=== PATIENT | female | born 1975 | race Caucasian/White ===

== ENCOUNTER 2017-05-10 21:34 | Emergency (ER) | payer OTHER ==
--- NOTE | 2017-05-10 21:56 | ERPHSYRPT ---
- History of Present Illness Time Seen by Provider: 05/10/17 21:51 Historian: patient Exam Limitations: no limitations Physician History: The patient is a 41-year-old female complaining of vomiting that began at approximately 1 PM or 8 hours ago. She has vomited numerous times. This caused pain in her abdomen as well as her back. She tried one Zofran ODT but she quickly vomited after taking it. She had one episode of loose stool just before arrival. She is not lightheaded. She has a past medical history of colitis that she states happens about twice a year. She also has past medical history of kidney stones, fibromyalgia, hypertension, depression, and GERD. Timing/Duration: today, hour(s) (8) Activities at Onset: none Quality: aching Abdominal Pain Onset Location: generalized abdomen Pain Radiation: back Severity of Pain-Max: moderate Severity of Pain-Current: moderate Modifying Factors: Improves With: vomiting Associated Symptoms: diarrhea, nausea, vomiting Previous symptoms: same symptoms as today Allergies/Adverse Reactions: meperidine HCl [From Demerol] Allergy (Unknown, Verified 09/04/15 23:07) aspirin Allergy (Verified 09/04/15 23:07) morphine Allergy (Verified 09/04/15 23:07) Home Medications: Duloxetine HCl [Cymbalta] 60 mg PO DAILY 08/08/15 [History] Enalapril Maleate 10 mg [Vasotec 10 MG] 10 mg PO BID 08/08/15 [History] Omeprazole 20 MG [Prilosec 20 mg] 20 mg PO BID 08/08/15 [History] Tramadol HCl 50 mg [Ultram 50 mg] 50 mg PO Q6H PRN 08/08/15 [History] Hx Tetanus, Diphtheria Vaccination/Date Given: Yes Hx Influenza Vaccination/Date Given: Yes Hx Pneumococcal Vaccination/Date Given: No - Review of Systems Constitutional: No Fever, No Chills Eyes: No Symptoms Ears, Nose, & Throat: No Symptoms Respiratory: No Cough, No Dyspnea Cardiac: No Chest Pain, No Edema, No Syncope Abdominal/Gastrointestinal: Abdominal Pain, Nausea, Vomiting, Diarrhea Genitourinary Symptoms: No Dysuria Musculoskeletal: No Back Pain, No Neck Pain Skin: No Rash Neurological: No Dizziness, No Focal Weakness, No Sensory Changes Psychological: No Symptoms Endocrine: No Symptoms Hematologic/Lymphatic: No Symptoms Immunological/Allergic: No Symptoms All Other Systems: Reviewed and Negative - Past Medical History Pertinent Past Medical History: Yes Neurological History: No Pertinent History ENT History: No Pertinent History Cardiac History: Hypertension Respiratory History: No Pertinent History Endocrine Medical History: No Pertinent History Musculoskeletal History: Fibromyalgia GI Medical History: Colitis, GERD History: Other Psycho-Social History: No Pertinent History Female Reproductive Disorders: No Pertinent History Other Medical History: SCIATICA - Past Surgical History Past Surgical History: Yes Neuro Surgical History: No Pertinent History Cardiac: No Pertinent History Respiratory: No Pertinent History Gastrointestinal: Cholecystectomy Genitourinary: No Pertinent History Musculoskeletal: No Pertinent History Female Surgical History: No Pertinent History Other Surgical History: childbirth x three, - Social History Smoking Status: Never smoker Exposure to second hand smoke: No Drug Use: none Patient Lives Alone: No Significant Family History: no pertinent family hx - Nursing Vital Signs Nursing Vital Signs: Initial Vital Signs Temperature 98.2 F 05/10/17 21:44 Pulse Rate 108 H 05/10/17 21:44 Respiratory Rate 16 05/10/17 21:44 Blood Pressure 156/96 05/10/17 21:44 O2 Sat by Pulse Oximetry 99 05/10/17 21:44 Pain Scale Pain Intensity 5 - Physical Exam General Appearance: mild distress Eye Exam: PERRL/EOMI, eyes nml inspection Ears, Nose, Throat Exam: normal ENT inspection, pharynx normal, moist mucous membranes Neck Exam: normal inspection, non-tender, supple, full range of motion Respiratory Exam: normal breath sounds, lungs clear, No respiratory distress Cardiovascular Exam: tachycardia Gastrointestinal/Abdomen Exam: tenderness (generalized), No guarding Pelvic Exam: not done Rectal Exam: not done Back Exam: normal inspection, normal range of motion, No CVA tenderness, No vertebral tenderness Extremity Exam: normal inspection, normal range of motion, pelvis stable Neurologic Exam: alert, oriented x 3, cooperative, normal mood/affect, nml cerebellar function, sensation nml, No motor deficits Skin Exam: normal color, warm, dry SpO2 Interpretation: normal - Radiology Exams Chest X-ray Interpretation: Interpreted by me, Negative Abdomen X-ray Interpretation: Negative (No obstruction, minimal air/fluid levels in small bowel.) Ordered Tests: Active Orders 24 hr Category Date Time Status Clean Catch Urine Specimen STAT Care 05/10/17 22:39 Active Clean Catch Urine Specimen STAT Care 05/10/17 23:07 Active IV Insertion STAT Care 05/10/17 21:57 Active OBSTR/ACUTE ABDOMEN SERIES Stat Exams 05/10/17 21:57 Taken CBC W DIFF Stat Lab 05/10/17 22:19 Completed CMP Stat Lab 05/10/17 22:19 Completed CULTURE,URINE Stat Lab 05/10/17 23:07 Received Lactic Acid Stat Lab 05/10/17 22:15 Completed UA W/ MICROSCOPIC Stat Lab 05/10/17 23:07 Completed Medication Summary Discontinued Medications Generic Name Dose Route Start Last Admin Trade Name Hanselq PRN Reason Stop Dose Admin Famotidine 20 mg 05/10/17 21:57 05/10/17 22:15 Pepcid 20 Mg Vial IV 05/10/17 21:58 20 mg STAT ONE Administration Famotidine Confirm 05/10/17 22:07 Pepcid 20 Mg Vial Administered 05/10/17 22:08 Dose 20 mg IV .STK-MED ONE Sodium Chloride 1,000 mls @ 999 mls/hr 05/10/17 21:57 05/10/17 22:24 Sodium Chloride 0.9% 1000 Ml IV 05/10/17 22:57 999 mls/hr .Q1H1M STA Administration Sodium Chloride Confirm 05/10/17 22:23 Sodium Chloride 0.9% 1000 Ml Administered 05/10/17 22:24 Dose 1,000 mls @ ud .ROUTE .STK-MED ONE Promethazine HCl 12.5 mg 05/10/17 21:57 05/10/17 22:15 Phenergan 25 Mg Inj IV 05/10/17 21:58 12.5 mg STAT ONE Administration Promethazine HCl Confirm 05/10/17 22:06 Phenergan 25 Mg Inj Administered 05/10/17 22:07 Dose 25 mg .ROUTE .STK-MED ONE Promethazine HCl 12.5 mg 05/10/17 22:42 05/10/17 23:00 Phenergan 25 Mg Inj IV 05/10/17 22:43 12.5 mg STAT ONE Administration Promethazine HCl Confirm 05/10/17 22:45 Phenergan 25 Mg Inj Administered 05/10/17 22:46 Dose 25 mg .ROUTE .STK-MED ONE Lab/Rad Data: Laboratory Result Diagrams 05/10/17 22:19 05/10/17 22:19 Laboratory Results 05/10/17 05/10/17 05/10/17 Range/Units 23:07 22:19 22:19 WBC 9.0 (4.0-10.5) K/mm3 RBC 5.34 (4.1-5.4) M/mm3 Hgb 13.7 (12.0-16.0) gm/dl Hct 41.9 (35-47) % MCV 78.5 (78-100) fl MCH 25.7 L (26-32) pg MCHC 32.7 (32-36) g/dl RDW 15.8 H (11.5-14.0) % Plt Count 233 (150-450) K/mm3 MPV 9.6 H (6-9.5) fl Gran % 87.8 H (36.0-66.0) % Eos # (Auto) 0.07 (0-0.5) Absolute Lymphs (auto) 0.66 L (1.0-4.6) Absolute Monos (auto) 0.35 (0.0-1.3) Lymphocytes % 7.3 L (24.0-44.0) % Monocytes % 3.9 (0.0-12.0) % Eosinophils % 0.8 (0.00-5.0) % Basophils % 0.2 (0.0-0.4) % Absolute Granulocytes 7.88 H (1.4-6.9) Basophils # 0.02 (0-0.4) Sodium 140 (137-145) mmol/L Potassium 3.8 (3.5-5.1) mmol/L Chloride 104 (98-107) mmol/L Carbon Dioxide 26 (22-30) mmol/L Anion Gap 14.5 (5-15) MEQ/L BUN 18 H (7-17) mg/dL Creatinine 0.59 (0.52-1.04) mg/dL Estimated GFR > 60 ML/MIN Glucose 116 H (74-106) mg/dL Lactic Acid (0.4-2.0) Calcium 8.9 (8.4-10.2) mg/dL Total Bilirubin 0.40 (0.2-1.3) mg/dL AST 17 (14-36) U/L ALT 14 (0-35) U/L Alkaline Phosphatase 61 (38-126) U/L Serum Total Protein 7.0 (6.3-8.2) g/dL Albumin 3.9 (3.5-5.0) g/dL Ur Collection Type CLEAN CATCH Urine Color YELLOW (YELLOW) Urine Appearance CLEAR (CLEAR) Urine pH 5.0 (5-6) Ur Specific [place] 1.015 (1.005-1.025) Urine Protein NEGATIVE (Negative) Urine Ketones NEGATIVE (NEGATIVE) Urine Blood 50 (0-5) Todd/ul Urine Nitrite NEGATIVE (NEGATIVE) Urine Bilirubin NEGATIVE (NEGATIVE) Urine Urobilinogen NORMAL (0-1) mg/dL Ur Leukocyte Esterase TRACE (NEGATIVE) Urine Microscopic RBC 5-10 (0-2) /HPF Urine Microscopic WBC 2-5 (0-5) /HPF Ur Epithelial Cells FEW (FEW) /HPF Urine Bacteria FEW (NEGATIVE) /HPF Urine Culture Reflexed YES (NO) Urine Glucose NEGATIVE (NEGATIVE) mg/dL Specimen Received [id number] 05/10/17 Range/Units 22:15 WBC (4.0-10.5) K/mm3 RBC (4.1-5.4) M/mm3 Hgb (12.0-16.0) gm/dl Hct (35-47) % MCV (78-100) fl MCH (26-32) pg MCHC (32-36) g/dl RDW (11.5-14.0) % Plt Count (150-450) K/mm3 MPV (6-9.5) fl Gran % (36.0-66.0) % Eos # (Auto) (0-0.5) Absolute Lymphs (auto) (1.0-4.6) Absolute Monos (auto) (0.0-1.3) Lymphocytes % (24.0-44.0) % Monocytes % (0.0-12.0) % Eosinophils % (0.00-5.0) % Basophils % (0.0-0.4) % Absolute Granulocytes (1.4-6.9) Basophils # (0-0.4) Sodium (137-145) mmol/L Potassium (3.5-5.1) mmol/L Chloride (98-107) mmol/L Carbon Dioxide (22-30) mmol/L Anion Gap (5-15) MEQ/L BUN (7-17) mg/dL Creatinine (0.52-1.04) mg/dL Estimated GFR ML/MIN Glucose (74-106) mg/dL Lactic Acid 1.7 (0.4-2.0) Calcium (8.4-10.2) mg/dL Total Bilirubin (0.2-1.3) mg/dL AST (14-36) U/L ALT (0-35) U/L Alkaline Phosphatase (38-126) U/L Serum Total Protein (6.3-8.2) g/dL Albumin (3.5-5.0) g/dL Ur Collection Type Urine Color (YELLOW) Urine Appearance (CLEAR) Urine pH (5-6) Ur Specific [place] (1.005-1.025) Urine Protein (Negative) Urine Ketones (NEGATIVE) Urine Blood (0-5) Todd/ul Urine Nitrite (NEGATIVE) Urine Bilirubin (NEGATIVE) Urine Urobilinogen (0-1) mg/dL Ur Leukocyte Esterase (NEGATIVE) Urine Microscopic RBC (0-2) /HPF Urine Microscopic WBC (0-5) /HPF Ur Epithelial Cells (FEW) /HPF Urine Bacteria (NEGATIVE) /HPF Urine Culture Reflexed (NO) Urine Glucose (NEGATIVE) mg/dL Specimen Received - Progress Progress: improved Counseled pt/family regarding: lab results, diagnosis, need for follow-up, rad results - Departure Time of Disposition: 01:03 Departure Disposition: Home Clinical Impression: Gastroenteritis Condition: Stable Critical Care Time: No Referrals: OC HERRERA MD [Primary Care Provider] - Additional Instructions: You have gastroenteritis. You were given Phenergan 12-1/2 mg 2 times and fluids by IV in the ER. Take Zofran 4 mg every 6 hours as needed for nausea and vomiting. Stay well hydrated. Follow-up in one to 2 days if no improvement. Prescriptions: Ondansetron ODT 4 MG [Zofran Odt 4 mg] 1 tab PO Q6H PRN PRN #10 tab.rapdis PRN Reason: Nausea/Vomiting
[2017-05-10] MEDS ORDERED: Sodium Chloride 0.9% 1000 ML 1,000 ML IV STA (21:57)
[2017-05-10] MEDS ORDERED: Pepcid 20 MG VIAL IV ONE ×2 (21:57→22:07)
[2017-05-10] MEDS ORDERED: Phenergan 25 MG INJ IV ONE ×2 (21:57→22:42)
[2017-05-10] MEDS ORDERED: Phenergan 25 MG INJ ONE ×2 (22:06→22:45)
[2017-05-10 22:23] LABS: BASOPHIL % 0.2 % (0.0-0.4); Basophil (Absolute #) 0.02 (0-0.4); Eosinophil % 0.8 % (0.00-5.0); Eosinophil (Absolute #) 0.07 (0-0.5); Granulocyte Absolute (ANC) 7.88 (1.4-6.9); Granulocytes % 87.8 % (36.0-66.0); Hematocrit 41.9 % (35-47); Hemoglobin 13.7 gm/dl (12.0-16.0); Lymphocyte (Absolute #) 0.66 (1.0-4.6); Lymphocytes % 7.3 % (24.0-44.0); Mean Cell Volume 78.5 fl (78-100); Mean Corpuscular Hemoglobin 25.7 pg (26-32); Mean Corpuscular Hgb Concent. 32.7 g/dl (32-36); Mean Platelet Volume 9.6 fl (6-9.5); Monocyte (Absolute #) 0.35 (0.0-1.3); Monocytes % 3.9 % (0.0-12.0); Platelet Count 233 K/mm3 (150-450); Red Blood Count 5.34 M/mm3 (4.1-5.4); Red Cell Distribution Width 15.8 % (11.5-14.0)
[2017-05-10] MEDS ORDERED: Sodium Chloride 0.9% 1000 ML 1,000 ML ONE (22:23)
[2017-05-10 22:38] LABS: ALBUMIN 3.9 g/dL (3.5-5.0); ALKALINE PHOSPHATASE 61 U/L (38-126); ANION GAP 14.5 MEQ/L (5-15); BLOOD UREA NITROGEN 18 mg/dL (7-17); CHLORIDE 104 mmol/L (98-107); Calcium 8.9 mg/dL (8.4-10.2); Carbon Dioxide 26 mmol/L (22-30); Creatinine 1 0.59 mg/dL (0.52-1.04); Glucose 116 mg/dL (74-106); Potassium 3.8 mmol/L (3.5-5.1); SGOT/AST 17 U/L (14-36); SGPT/ALT 14 U/L (0-35); SODIUM 140 mmol/L (137-145)
[2017-05-10 23:40] VITALS: O2SAT 100
[2017-05-10 23:50] LABS: Appearance CLEAR (CLEAR); Bilirubin NEGATIVE (NEGATIVE); Blood 50 Ery/ul (0-5); Glucose NEGATIVE (NEGATIVE); Ketones NEGATIVE (NEGATIVE); Leukocyte Esterase TRACE (NEGATIVE); Nitrite NEGATIVE (NEGATIVE); Protein,Urine Dip NEGATIVE (Negative); Specific Gravity 1.015 (1.005-1.025); Urobilinogen NORMAL mg/dL (0-1)
[2017-05-10 23:51] LABS: Bacteria FEW /HPF (NEGATIVE); Epithelial Cells FEW /HPF (FEW)
[2017-05-11 00:50] VITALS: BP 134/80; PULSE 89
--- NOTE | 2017-05-11 09:13 | XRAY ---
Indication: Abdominal pain, nausea, and vomiting. Comparison: Chest exam May 26, 2014. 2 views of the abdomen demonstrates nonspecific nonobstructed bowel gas pattern. Minimal small and large bowel fluid leveling, ileus or enterocolitis. No focal bowel dilatation, obstruction, or free air. Previous cholecystectomy. Solid organs and osseous structures unremarkable. Single frontal chest again demonstrates normal heart and lungs with a few incidental calcified granulomas. Bony thorax intact again with minimal degenerative changes. Impression: 1. Minimal small and large bowel fluid leveling. Rule out ileus versus enterocolitis. 2. Stable nonacute 1 view chest with chronic features.
== END 2017-05-11 01:11 | disposition home or self-care (01) ==
LOC: ED 21:34
DX: K52.9 Noninfective gastroenteritis and colitis, unspecified (principal); R11.2 Nausea with vomiting, unspecified; Z79.899 Other long term (current) drug therapy
CPT/HCPCS: 36000; 36415; 74022; 80053; 81000; 83605; 85025; 87086; 96360; 99284; J2550

== ENCOUNTER 2017-07-27 02:05 | Inpatient (IN) | payer OTHER ==
[2017-07-27] MEDS ORDERED: Hydromorphone 1 mg/ml Ampule IV ONE ×2 (02:38→04:46)
[2017-07-27] MEDS ORDERED: Zofran 4 MG/2 ML VIAL IV ONE ×2 (02:38→04:47)
[2017-07-27] MEDS ORDERED: TYLENOL 325 MG PO ONE (02:38)
[2017-07-27] MEDS ORDERED: Sodium Chloride 0.9% 1000 ML 1,000 ML IV STA ×2 (02:38→08:40)
--- NOTE | 2017-07-27 02:38 | ERPHSYRPT ---
- History of Present Illness Time Seen by Provider: 07/27/17 02:27 Source: patient Exam Limitations: no limitations Patient Subjective Stated Complaint: Pt arrives to ER with c/o generalized body aches that began 1400 while laying in bed. States pain is all over and not more in any one spot than another other than headache. Pt states couple be Fibromyalgia flare up and rates pain 12/10. Does not appear to be in any acute distress at this time. States has a known kidney stone on left side but denies any specific problems from stone. Pt denies hematuria, dysuria, vaginal discharge. 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 States has also been stressed lately. Triage Nursing Assessment: see above Physician History: 42 y/o female with history of colitis, kidneys tone and fibromyalgia comes to the ER with complaints of diffue body aches with the pain worse in the lower abdomen since yesterday afternoon. Pt describes the pain as aching, constant, 8/ 10, and not relieved by tramadol and hot baths. Pt also admits to nausea, but no vomiting, diarrhea, constipation, or bloody stools. Pt arrives with a fever of 100.8 and tachycardic in the 110's. Timing/Duration: yesterday Severity: severe Modifying Factors: Improves With: nothing Associated Symptoms: nausea, No shortness of breath, No diaphoresis, No cough, No loss of appetite Allergies/Adverse Reactions: meperidine HCl [From Demerol] Allergy (Unknown, Verified 07/27/17 02:22) aspirin Allergy (Verified 07/27/17 02:22) morphine Allergy (Verified 07/27/17 02:22) Home Medications: Duloxetine HCl [Cymbalta] 60 mg PO DAILY 08/08/15 [History] Enalapril Maleate 10 mg [Vasotec 10 MG] 10 mg PO BID 08/08/15 [History] Omeprazole 20 MG [Prilosec 20 mg] 20 mg PO BID 08/08/15 [History] Tramadol HCl 50 mg [Ultram 50 mg] 50 mg PO Q6H PRN 08/08/15 [History] Alprazolam [Xanax] 0.5 mg PO 07/27/17 [History] Hx Tetanus, Diphtheria Vaccination/Date Given: Yes Hx Influenza Vaccination/Date Given: Yes Hx Pneumococcal Vaccination/Date Given: No - Review of Systems Constitutional: Weakness, No Fever, No Chills Eyes: No Symptoms Ears, Nose, & Throat: No Symptoms Respiratory: No Cough, No Dyspnea Cardiac: No Chest Pain, No Edema, No Syncope Abdominal/Gastrointestinal: Abdominal Pain, Nausea, No Vomiting, No Diarrhea Genitourinary Symptoms: No Dysuria Musculoskeletal: Myalgias, No Back Pain, No Neck Pain Skin: No Rash Neurological: No Dizziness, No Focal Weakness, No Sensory Changes Psychological: No Symptoms Endocrine: No Symptoms All Other Systems: Reviewed and Negative - Past Medical History Pertinent Past Medical History: Yes Neurological History: No Pertinent History ENT History: No Pertinent History Cardiac History: Hypertension Respiratory History: No Pertinent History Endocrine Medical History: No Pertinent History Musculoskeletal History: Fibromyalgia GI Medical History: Colitis, GERD History: Other Psycho-Social History: No Pertinent History Female Reproductive Disorders: No Pertinent History Other Medical History: SCIATICA, kidney stones - Past Surgical History Past Surgical History: Yes Neuro Surgical History: No Pertinent History Cardiac: Cardiac Catheterization Respiratory: No Pertinent History Gastrointestinal: Cholecystectomy Genitourinary: No Pertinent History Musculoskeletal: No Pertinent History Female Surgical History: No Pertinent History Other Surgical History: childbirth x three, - Social History Smoking Status: Never smoker Exposure to second hand smoke: No Drug Use: none Patient Lives Alone: No Significant Family History: no pertinent family hx - Female History Hx Now: No - Nursing Vital Signs Nursing Vital Signs: Initial Vital Signs Temperature 100.8 F 07/27/17 02:13 Pulse Rate 117 H 07/27/17 02:13 Respiratory Rate 18 07/27/17 02:13 Blood Pressure 161/91 07/27/17 02:13 O2 Sat by Pulse Oximetry 100 07/27/17 02:13 Pain Scale Pain Intensity [Generalized] 10 Pain Intensity 5 - Physical Exam General Appearance: no apparent distress, alert Eye Exam: PERRL/EOMI, eyes nml inspection Ears, Nose, Throat Exam: normal ENT inspection, TMs normal, pharynx normal, moist mucous membranes Neck Exam: normal inspection, non-tender, supple, full range of motion Respiratory Exam: normal breath sounds, lungs clear, No respiratory distress Cardiovascular Exam: regular rate/rhythm, normal heart sounds, normal peripheral pulses, tachycardia Gastrointestinal/Abdomen Exam: soft, normal bowel sounds, tenderness, No mass Back Exam: normal inspection, normal range of motion, No CVA tenderness, No vertebral tenderness Extremity Exam: normal inspection, normal range of motion, pelvis stable Neurologic Exam: alert, oriented x 3, cooperative, normal mood/affect, nml cerebellar function, nml station & gait, sensation nml, No motor deficits Skin Exam: normal color, warm, dry, No rash Lymphatic Exam: No adenopathy SpO2: 100 Oxygen Delivery: Room Air - Course Nursing assessment & vital signs reviewed: Yes Ordered Tests: Active Orders 24 hr Category Date Time Status IV Insertion STAT Care 07/27/17 02:38 Active ABDOMEN AND PELVIS W CONTRAST [CT] Stat Exams 07/27/17 02:38 Taken CHEST 2 VIEWS (PA AND LAT) Stat Exams 07/27/17 02:38 Taken AMYLASE Stat Lab 07/27/17 02:25 Completed BLOOD CULTURE Stat Lab 07/27/17 03:10 Received CBC W DIFF Stat Lab 07/27/17 02:25 Completed CMP Stat Lab 07/27/17 02:25 Completed HCG QUALITATIVE,SERUM Stat Lab 07/27/17 02:25 Completed LIPASE Stat Lab 07/27/17 02:25 Completed Lactic Acid Stat Lab 07/27/17 03:15 Completed UA W/ MICROSCOPIC Stat Lab 07/27/17 02:25 Completed Medication Summary Generic Name Dose Route Start Last Admin Trade Name Freq PRN Reason Stop Dose Admin Levofloxacin/Dextrose 750 mg in 150 mls @ 100 mls/hr 07/27/17 06:02 Levofloxacin 750mg/150ml D5w IV 07/27/17 07:31 STAT ONE Metronidazole 500 mg in 100 mls @ 200 mls/hr 07/27/17 06:04 Flagyl 500 Mg Ivpb IV 07/27/17 06:33 STAT STA Discontinued Medications Generic Name Dose Route Start Last Admin Trade Name Freq PRN Reason Stop Dose Admin Acetaminophen 975 mg 07/27/17 02:38 07/27/17 02:54 Tylenol 325 Mg PO 07/27/17 02:39 975 mg STAT ONE Administration Acetaminophen Confirm 07/27/17 02:44 Tylenol 325 Mg Administered 07/27/17 02:45 Dose 975 mg .ROUTE .STK-MED ONE Hydromorphone HCl 1 mg 07/27/17 02:38 07/27/17 02:53 Hydromorphone 1 Mg/Ml Ampule IV 07/27/17 02:39 1 mg STAT ONE Administration Hydromorphone HCl Confirm 07/27/17 02:44 Dilaudid 2 Mg Injection Administered 07/27/17 02:45 Dose 2 mg .ROUTE .STK-MED ONE Hydromorphone HCl 1 mg 07/27/17 04:46 07/27/17 04:50 Hydromorphone 1 Mg/Ml Ampule IV 07/27/17 04:47 1 mg STAT ONE Administration Hydromorphone HCl Confirm 07/27/17 04:48 Dilaudid 2 Mg Injection Administered 07/27/17 04:49 Dose 2 mg .ROUTE .STK-MED ONE Sodium Chloride 1,000 mls @ 999 mls/hr 07/27/17 02:38 07/27/17 03:56 Sodium Chloride 0.9% 1000 Ml IV 07/27/17 03:38 Infused .Q1H1M STA Infusion Sodium Chloride Confirm 07/27/17 02:44 Sodium Chloride 0.9% 1000 Ml Administered 07/27/17 02:45 Dose 1,000 mls @ ud .ROUTE .STK-MED ONE Ondansetron HCl 4 mg 07/27/17 02:38 07/27/17 02:54 Zofran 4 Mg/2 Ml Vial IV 07/27/17 02:39 4 mg STAT ONE Administration Ondansetron HCl Confirm 07/27/17 02:43 Zofran 4 Mg/2 Ml Vial Administered 07/27/17 02:44 Dose 4 mg .ROUTE .STK-MED ONE Ondansetron HCl 4 mg 07/27/17 04:47 07/27/17 04:50 Zofran 4 Mg/2 Ml Vial IV 07/27/17 04:48 4 mg STAT ONE Administration Ondansetron HCl Confirm 07/27/17 04:48 Zofran 4 Mg/2 Ml Vial Administered 07/27/17 04:49 Dose 4 mg .ROUTE .STK-MED ONE Lab/Rad Data: Laboratory Result Diagrams 07/27/17 02:25 07/27/17 02:25 Laboratory Results 07/27/17 07/27/17 07/27/17 Range/Units 03:15 02:25 02:25 WBC (4.0-10.5) K/mm3 RBC (4.1-5.4) M/mm3 Hgb (12.0-16.0) gm/dl Hct (35-47) % MCV (78-100) fl MCH (26-32) pg MCHC (32-36) g/dl RDW (11.5-14.0) % Plt Count (150-450) K/mm3 MPV (6-9.5) fl Gran % (36.0-66.0) % Eos # (Auto) (0-0.5) Absolute Lymphs (auto) (1.0-4.6) Absolute Monos (auto) (0.0-1.3) Lymphocytes % (24.0-44.0) % Monocytes % (0.0-12.0) % Eosinophils % (0.00-5.0) % Basophils % (0.0-0.4) % Absolute Granulocytes (1.4-6.9) Basophils # (0-0.4) Sodium (137-145) mmol/L Potassium (3.5-5.1) mmol/L Chloride (98-107) mmol/L Carbon Dioxide (22-30) mmol/L Anion Gap (5-15) MEQ/L BUN (7-17) mg/dL Creatinine (0.52-1.04) mg/dL Estimated GFR ML/MIN Glucose (74-106) mg/dL Lactic Acid 1.1 (0.4-2.0) Calcium (8.4-10.2) mg/dL Total Bilirubin (0.2-1.3) mg/dL AST (14-36) U/L ALT (0-35) U/L Alkaline Phosphatase (38-126) U/L Serum Total Protein (6.3-8.2) g/dL Albumin (3.5-5.0) g/dL Amylase (30-110) U/L Lipase (23-300) U/L Serum , Qual NEGATIVE (Negative) Ur Collection Type CCMS Urine Color YELLOW (YELLOW) Urine Appearance CLEAR (CLEAR) Urine pH 5.0 (5-6) Ur Specific [place] 1.015 (1.005-1.025) Urine Protein NEGATIVE (Negative) Urine Ketones NEGATIVE (NEGATIVE) Urine Blood NEGATIVE (0-5) Todd/ul Urine Nitrite NEGATIVE (NEGATIVE) Urine Bilirubin NEGATIVE (NEGATIVE) Urine Urobilinogen NORMAL (0-1) mg/dL Ur Leukocyte Esterase 1+ (NEGATIVE) Urine Microscopic WBC 0-2 (0-5) /HPF Ur Epithelial Cells MANY (FEW) /HPF Urine Culture Reflexed NO (NO) Urine Glucose NEGATIVE (NEGATIVE) mg/dL Specimen Received 07-27-17 [id number] 07/27/17 07/27/17 Range/Units 02:25 02:25 WBC 8.1 (4.0-10.5) K/mm3 RBC 5.13 (4.1-5.4) M/mm3 Hgb 13.4 (12.0-16.0) gm/dl Hct 40.0 (35-47) % MCV 78.0 (78-100) fl MCH 26.1 (26-32) pg MCHC 33.5 (32-36) g/dl RDW 16.9 H (11.5-14.0) % Plt Count 218 (150-450) K/mm3 MPV 9.8 H (6-9.5) fl Gran % 80.9 H (36.0-66.0) % Eos # (Auto) 0.03 (0-0.5) Absolute Lymphs (auto) 0.87 L (1.0-4.6) Absolute Monos (auto) 0.61 (0.0-1.3) Lymphocytes % 10.8 L (24.0-44.0) % Monocytes % 7.5 (0.0-12.0) % Eosinophils % 0.4 (0.00-5.0) % Basophils % 0.4 (0.0-0.4) % Absolute Granulocytes 6.55 (1.4-6.9) Basophils # 0.03 (0-0.4) Sodium 137 (137-145) mmol/L Potassium 3.6 (3.5-5.1) mmol/L Chloride 102 (98-107) mmol/L Carbon Dioxide 24 (22-30) mmol/L Anion Gap 13.7 (5-15) MEQ/L BUN 12 (7-17) mg/dL Creatinine 0.80 (0.52-1.04) mg/dL Estimated GFR > 60.0 ML/MIN Glucose 99 (74-106) mg/dL Lactic Acid (0.4-2.0) Calcium 9.0 (8.4-10.2) mg/dL Total Bilirubin 0.50 (0.2-1.3) mg/dL AST 12 L (14-36) U/L ALT 14 (0-35) U/L Alkaline Phosphatase 61 (38-126) U/L Serum Total Protein 7.3 (6.3-8.2) g/dL Albumin 4.0 (3.5-5.0) g/dL Amylase 50 (30-110) U/L Lipase 68 (23-300) U/L Serum , Qual (Negative) Ur Collection Type Urine Color (YELLOW) Urine Appearance (CLEAR) Urine pH (5-6) Ur Specific [place] (1.005-1.025) Urine Protein (Negative) Urine Ketones (NEGATIVE) Urine Blood (0-5) Todd/ul Urine Nitrite (NEGATIVE) Urine Bilirubin (NEGATIVE) Urine Urobilinogen (0-1) mg/dL Ur Leukocyte Esterase (NEGATIVE) Urine Microscopic WBC (0-5) /HPF Ur Epithelial Cells (FEW) /HPF Urine Culture Reflexed (NO) Urine Glucose (NEGATIVE) mg/dL Specimen Received - Progress Progress: improved Progress Note: 07/27/17 06:[address] scan abd/pelvis shows wall thickening of the cecum, ascending colon, proximal transverse colon with mild stranding around the cecum. There may be some involvement of the terminal ileum. Pt feels better after receiving 2 doses of dilaudid for pain and nausea/vomiting is also well controlled after receiving zofran. Pt has no white count and lactic acid is within normal limits but the patient presented with a fever and was tachycardic. Pt has been admitted to Dr Heath for colitis. - Departure Time of Disposition: 06:08 Departure Disposition: In-patient Admission Clinical Impression: Colitis Condition: Fair Critical Care Time: Yes Critical Care Time(excluding separately billable procedures): 30-74 minutes Referrals: OC HERRERA MD [Primary Care Provider] -
[2017-07-27] MEDS ORDERED: Zofran 4 MG/2 ML VIAL ONE ×2 (02:43→04:48)
[2017-07-27] MEDS ORDERED: DILAUDID 2 MG INJECTION ONE ×2 (02:44→04:48)
[2017-07-27] MEDS ORDERED: TYLENOL 325 MG ONE (02:44)
[2017-07-27] MEDS ORDERED: Sodium Chloride 0.9% 1000 ML 1,000 ML ONE (02:44)
[2017-07-27 02:47] LABS: BASOPHIL % 0.4 % (0.0-0.4); Basophil (Absolute #) 0.03 (0-0.4); Eosinophil % 0.4 % (0.00-5.0); Eosinophil (Absolute #) 0.03 (0-0.5); Granulocyte Absolute (ANC) 6.55 (1.4-6.9); Granulocytes % 80.9 % (36.0-66.0); Hemoglobin 13.4 gm/dl (12.0-16.0); Lymphocyte (Absolute #) 0.87 (1.0-4.6); Lymphocytes % 10.8 % (24.0-44.0); Mean Corpuscular Hemoglobin 26.1 pg (26-32); Mean Corpuscular Hgb Concent. 33.5 g/dl (32-36); Mean Platelet Volume 9.8 fl (6-9.5); Monocyte (Absolute #) 0.61 (0.0-1.3); Monocytes % 7.5 % (0.0-12.0); Platelet Count 218 K/mm3 (150-450); Red Blood Count 5.13 M/mm3 (4.1-5.4); Red Cell Distribution Width 16.9 % (11.5-14.0); White Blood Count 8.1 K/mm3 (4.0-10.5)
[2017-07-27 03:18] LABS: ALKALINE PHOSPHATASE 61 U/L (38-126); AMYLASE 50 U/L (30-110); ANION GAP 13.7 MEQ/L (5-15); BLOOD UREA NITROGEN 12 mg/dL (7-17); CHLORIDE 102 mmol/L (98-107); Carbon Dioxide 24 mmol/L (22-30); Glucose 99 mg/dL (74-106); LIPASE 68 U/L (23-300); Potassium 3.6 mmol/L (3.5-5.1); SGOT/AST 12 U/L (14-36); SGPT/ALT 14 U/L (0-35); SODIUM 137 mmol/L (137-145); Total Protein 7.3 g/dL (6.3-8.2)
[2017-07-27 03:39] LABS: Appearance CLEAR (CLEAR); Bilirubin NEGATIVE (NEGATIVE); Glucose NEGATIVE (NEGATIVE); Ketones NEGATIVE (NEGATIVE); Leukocyte Esterase 1+ (NEGATIVE); Nitrite NEGATIVE (NEGATIVE); Protein,Urine Dip NEGATIVE (Negative); Specific Gravity 1.015 (1.005-1.025); Urobilinogen NORMAL mg/dL (0-1)
[2017-07-27 03:40] LABS: Blood NEGATIVE Ery/ul (0-5); Epithelial Cells MANY /HPF (FEW); WBC 0-2 /HPF (0-5)
[2017-07-27] MEDS ORDERED: LEVOFLOXACIN 750MG/150ML D5W 750 MG/150 ML BAG IV ONE ×2 (06:02→06:04)
[2017-07-27] MEDS ORDERED: FLAGYL 500 MG IVPB 500 MG/100 ML BAG IV STA (06:04)
[2017-07-27] MEDS ORDERED: Phenergan 25 MG INJ IM PRN (06:08)
[2017-07-27] MEDS ORDERED: Sodium Chloride 0.9% 1000 ML 1,000 ML IV SCH ×2 (06:15)
--- NOTE | 2017-07-27 08:39 | PCM.HP ---
History of Present Illness - Chief Complaint Chief Complaint: colitis History of Present Illness: is a 42 year old female pt of Dr. Mai who woke up at 2 pm yesterday with body aches all over, nonlocalized. She did not note a fever. Came to the ER this morning and was found to be tacycardic and febrile to 100.8. CT showed colitis. She was put on levaquin and flagyl and admitted to med-surg unit. She started having watery diarrhea after the CT scan with dye. she denies any abd pain but was having nausea. She has a history of colitis several atimes in a year. Last colonoscopy several years ago. - Review of Systems Constitutional: Fever, Chills, Fatigue Abdominal/Gastrointestinal: Nausea, Diarrhea All Other Systems: Reviewed and Negative Medications & Allergies Home Medications: Home Medication List Duloxetine HCl [Cymbalta] 60 mg PO DAILY 08/08/15 [History Confirmed 07/27/17] Enalapril Maleate 10 mg [Vasotec 10 MG] 10 mg PO BID 08/08/15 [History Confirmed 07/27/17] Omeprazole 20 MG [Prilosec 20 mg] 20 mg PO BID 08/08/15 [History Confirmed 07/27] Tramadol HCl 50 mg [Ultram 50 mg] 50 mg PO Q6H PRN 08/08/15 [History Confirmed 07/27/17] Ondansetron ODT 4 MG [Zofran Odt 4 mg] 1 tab PO Q6H PRN PRN #10 tab.rapdis [Rx Confirmed 07/27/17] Alprazolam [Xanax] 0.5 mg PO Q6H PRN PRN 07/27/17 [History Confirmed 07/27/17] Nitroglycerin 0.4 mg Tablet [Nitrostat 0.4 MG Tablet] 0.4 mg SL Q5MIN PRN MR X 3 PRN 07/27/17 [History Confirmed 07/27/17] Allergies/Adverse Reactions: Allergies Allergy/AdvReac Type Severity Reaction Status Date / Time meperidine HCl [From Demerol] Allergy Unknown Verified 07/27/17 02:22 aspirin Allergy Verified 07/27/17 02:22 morphine Allergy Verified 07/27/17 02:22 - Past Medical History Past Medical History: Yes Neurological History: No Pertinent History, Migraines ENT History: No Pertinent History Cardiac History: Hypertension Respiratory History: No Pertinent History Endocrine Medical History: No Pertinent History Musculoskelatal History: Fibromyalgia GI Medical History: Colitis, GERD History: Other Pyscho-Social History: No Pertinent History Reproductive Disorders: No Pertinent History Comment: SCIATICA, kidney stones - Female History Are you now?: No - Past Surgical History Past Surgical History: Yes Neuro Surgical History: No Pertinent History Cardiac History: Cardiac Catheterization Respiratory Surgery: No Pertinent History GI Surgical History: Cholecystectomy Genitourinary Surgical Hx: No Pertinent History Musculskeletal Surgical Hx: No Pertinent History Female Surgical History: No Pertinent History Other Surgical History: childbirth x three, - Social History Smoking Status: Never smoker Exposure to second hand smoke: No Alcohol: Rarely Drug Use: none Significant Family History: no pertinent family hx - Physical Exam Vital Signs: Vital Signs - 24 hr Temp Pulse Resp BP Pulse Ox 07/27/17 07:00 98.2 F 110 H 20 139/80 100 07/27/17 06:50 98.2 F 110 H 20 139/80 100 07/27/17 06:37 98.2 F 110 H 20 139/80 100 07/27/17 06:12 99.6 F 106 H 18 128/88 100 07/27/17 06:08 100 07/27/17 04:00 18 107/74 99 07/27/17 03:30 127/76 99 07/27/17 02:13 100.8 F 117 H 18 161/91 100 General Appearance: no apparent distress, alert, obese Neurologic Exam: oriented x 3, normal mood/affect Eye Exam: eyes nml inspection Ears, Nose, Throat Exam: moist mucous membranes Neck Exam: normal inspection, non-tender, No lymphadenopathy Respiratory Exam: normal breath sounds, lungs clear, No crackles/rales, No rhonchi, No wheezing Cardiovascular Exam: regular rate/rhythm, normal heart sounds, No murmur Gastrointestinal/Abdomen Exam: soft, normal bowel sounds, No tenderness, No distention, No mass, No guarding, No rebound Extremity Exam: normal inspection, No pedal edema, No swelling Skin Exam: normal color, warm, dry, No rash Assessment/Plan (1) Colitis Current Visit: Yes Status: Acute Onset Date: ~07/27/17 Assessment & Plan: On IV levaquin and flagyl. Code(s): K52.9 - NONINFECTIVE GASTROENTERITIS AND COLITIS, UNSPECIFIED (2) Sinus tachycardia Current Visit: Yes Status: Acute Onset Date: ~07/27/17 Assessment & Plan: Will give her a bolus of IV fluids. Code(s): R00.0 - TACHYCARDIA, UNSPECIFIED (3) Essential hypertension Current Visit: No Status: Chronic Code(s): I10 - ESSENTIAL (PRIMARY) HYPERTENSION (4) Diarrhea Current Visit: Yes Status: Acute Qualifiers: Diarrhea type: unspecified type Qualified Code(s): R19.7 - Diarrhea, unspecified Assessment & Plan: check for c. diff. Code(s): R19.7 - DIARRHEA, UNSPECIFIED
[2017-07-27] MEDS: Phenergan 25 MG INJ IV PRN ×2 (08:56→21:40)
--- NOTE | 2017-07-27 09:01 | XRAY ---
Indication: Fever. Comparison: May 10, 2017. PA/lateral chest again demonstrates a few incidental calcified granulomas. Remaining heart and lungs normal. Bony thorax intact again with minimal degenerative changes. No new/acute findings.
--- NOTE | 2017-07-27 09:01 | XRAY ---
Indication: Lower abdominal pain. Nausea, diarrhea, and bloody stools. History colitis. Multiple contiguous axial images obtained through the abdomen and pelvis prior to and following 80 cc Isovue 370 contrast. Oral contrast also used. Comparison: August 08, 2015. Lung bases demonstrates minimal bilateral dependent atelectasis. No infiltrate or effusion. Heart is not enlarged. Noncontrasted images of the abdomen/pelvis demonstrates stable nonobstructing left renal micro-calculus. No new pathologic visceral calcifications or calculi. Again previous cholecystectomy. Contrasted stomach and bowel loops appear nonobstructed. There is now mild cecal bowel wall thickening with minimal stranding favoring colitis. Lesser degree seen of the ileocecal junction suggestive of Crohn's disease. No free fluid/air. Postcontrast images demonstrating normal visceral enhancement and renal excretion. 1 cm left mid renal cortical cyst not seen on previous noncontrast exam. Left kidney also demonstrates subtle heterogeneity, possible underlying infectious/inflammatory process such as pyelonephritis. New 4.7 cm left ovary cyst. Remaining liver, pancreas, spleen, adrenal glands, kidneys, ureters, bladder, and aorta appear unremarkable. No pathologic retroperitoneal lymphadenopathy. Osseous structures intact. Impression: 1. New cecal bowel wall thickening with lesser degree of the ileocecal junction. Rule out Crohn's disease. No complications. 2. New 4.7 cm left ovary cyst. 3. Left renal cyst and nonobstructing micro-calculus. Left renal heterogeneous enhancement. Rule out pyelonephritis. Comment: Preliminary interpretation was made by [facility]. No critical discrepancy. CTDI 23.13
[2017-07-27] MEDS: DILAUDID 2 MG INJECTION IV PRN ×2 (10:09→16:22)
[2017-07-27] MEDS: Sodium Chloride 0.9% W/ 20 mEq KCl/LITER 1,000 ML IV SCH ×2 (10:10→21:25)
[2017-07-27] MEDS: FLAGYL 500 MG IVPB 500 MG/100 ML BAG IV SCH ×2 (11:47→18:40)
[2017-07-27 13:34] LABS: 027 TOX PROD PRESUMPTIVE NEGATIVE (NEGATIVE); TOXIGENIC C. DIFF ORG NEGATIVE (NEGATIVE)
[2017-07-27] MEDS: ENOXAPARIN SODIUM SQ SCH (14:01)
[2017-07-27] MEDS: TYLENOL 325 MG PO PRN (21:39)
[2017-07-28] MEDS: DILAUDID 2 MG INJECTION IV PRN ×6 (00:40→20:40)
[2017-07-28] MEDS: FLAGYL 500 MG IVPB 500 MG/100 ML BAG IV SCH ×4 (00:51→17:21)
[2017-07-28] MEDS: TYLENOL 325 MG PO PRN (03:40)
[2017-07-28 05:49] LABS: BASOPHIL % 0.3 % (0.0-0.4); Basophil (Absolute #) 0.02 (0-0.4); Eosinophil % 0.8 % (0.00-5.0); Eosinophil (Absolute #) 0.05 (0-0.5); Granulocyte Absolute (ANC) 4.12 (1.4-6.9); Granulocytes % 66.6 % (36.0-66.0); Hematocrit 35.8 % (35-47); Hemoglobin 11.6 gm/dl (12.0-16.0); Lymphocyte (Absolute #) 1.38 (1.0-4.6); Lymphocytes % 22.3 % (24.0-44.0); Mean Cell Volume 79.7 fl (78-100); Mean Corpuscular Hemoglobin 25.8 pg (26-32); Mean Corpuscular Hgb Concent. 32.4 g/dl (32-36); Mean Platelet Volume 9.5 fl (6-9.5); Monocyte (Absolute #) 0.62 (0.0-1.3); Platelet Count 171 K/mm3 (150-450); Red Blood Count 4.49 M/mm3 (4.1-5.4); Red Cell Distribution Width 16.8 % (11.5-14.0); White Blood Count 6.2 K/mm3 (4.0-10.5)
[2017-07-28 06:06] LABS: ANION GAP 10.3 MEQ/L (5-15); BLOOD UREA NITROGEN 5 mg/dL (7-17); CHLORIDE 108 mmol/L (98-107); Calcium 8.4 mg/dL (8.4-10.2); Carbon Dioxide 25 mmol/L (22-30); Creatinine 1 0.69 mg/dL (0.52-1.04); Glucose 96 mg/dL (74-106); Potassium 4.2 mmol/L (3.5-5.1); SODIUM 139 mmol/L (137-145)
[2017-07-28] MEDS: Sodium Chloride 0.9% W/ 20 mEq KCl/LITER 1,000 ML IV SCH ×2 (06:31→19:27)
[2017-07-28] MEDS: Phenergan 25 MG INJ IV PRN ×3 (07:51→20:40)
[2017-07-28] MEDS: Levofloxacin 500MG/100ML D5W 500 MG/100 ML BAG IV SCH (09:02)
[2017-07-28] MEDS: ENOXAPARIN SODIUM SQ SCH (09:02)
--- NOTE | 2017-07-28 09:27 | PCM.NOTE ---
Date and Time: 07/28/17924 Subjective Assessment: patient has persistent loose stools, abd pain diffusely. perhaps some mild improvement since admission. Objective Exam General Appearance: no apparent distress, alert Respiratory Exam: normal breath sounds, lungs clear, No respiratory distress Cardiovascular Exam: regular rate/rhythm, normal heart sounds Gastrointestinal/Abdomen Exam: soft, normal bowel sounds, tenderness, No guarding, No rebound Extremity Exam: normal inspection, normal range of motion OBJECTIVE DATA Vital Signs: Vital Signs - 24 hr Temp Pulse Resp BP Pulse Ox 07/28/17 08:00 98.8 F 100 H 18 128/61 99 07/28/17 04:00 99.0 F 80 17 145/84 97 07/28/17 00:00 98.9 F 87 19 133/62 96 07/27/17 19:36 99.1 F 99 H 19 131/69 97 07/27/17 16:15 99.7 F 111 H 20 132/68 96 07/27/17 12:03 98.5 F 90 20 120/61 94 L Pain Assessment - Last Documented Pain Intensity 8 Pain Scale Used 0-10 Pain Scale Intake and Output: Intake & Output 07/25/17 07/26/17 07/27/17 07/28/17 11:59 11:59 11:59 11:59 Intake Total 0 0 Output Total 3800 Balance 0 -3800 Weight 108.409 kg Lab Results: Lab Results-Last 24 Hours 07/27/17 07/28/17 07/28/17 Range/Units 11:22 05:25 05:25 WBC 6.2 (4.0-10.5) K/mm3 RBC 4.49 (4.1-5.4) M/mm3 Hgb 11.6 L (12.0-16.0) gm/dl Hct 35.8 (35-47) % MCV 79.7 (78-100) fl MCH 25.8 L (26-32) pg MCHC 32.4 (32-36) g/dl RDW 16.8 H (11.5-14.0) % Plt Count 171 (150-450) K/mm3 MPV 9.5 (6-9.5) fl Gran % 66.6 H (36.0-66.0) % Eos # (Auto) 0.05 (0-0.5) Absolute Lymphs (auto) 1.38 (1.0-4.6) Absolute Monos (auto) 0.62 (0.0-1.3) Lymphocytes % 22.3 L (24.0-44.0) % Monocytes % 10.0 (0.0-12.0) % Eosinophils % 0.8 (0.00-5.0) % Basophils % 0.3 (0.0-0.4) % Absolute Granulocytes 4.12 (1.4-6.9) Basophils # 0.02 (0-0.4) Sodium 139 (137-145) mmol/L Potassium 4.2 (3.5-5.1) mmol/L Chloride 108 H (98-107) mmol/L Carbon Dioxide 25 (22-30) mmol/L Anion Gap 10.3 (5-15) MEQ/L BUN 5 L (7-17) mg/dL Creatinine 0.69 (0.52-1.04) mg/dL Estimated GFR > 60.0 ML/MIN Glucose 96 (74-106) mg/dL Calcium 8.4 (8.4-10.2) mg/dL Stl C. diff Tox B Gene NEGATIVE (NEGATIVE) C.difficile [id number] PRESUMPTIVE NEGATIVE (NEGATIVE) Assessment/Plan (1) Colitis Current Visit: Yes Status: Acute Onset Date: ~07/27/17 Assessment & Plan: continue IV levaquin and flagyl Code(s): K52.9 - NONINFECTIVE GASTROENTERITIS AND COLITIS, UNSPECIFIED (2) Abdominal pain Current Visit: Yes Status: Acute Onset Date: ~07/27/17 Qualifiers: Abdominal location: generalized Qualified Code(s): R10.84 - Generalized abdominal pain Code(s): R10.9 - UNSPECIFIED ABDOMINAL PAIN
[2017-07-28] MEDS ORDERED: xanAX 0.5 MG PO PRN (09:49)
[2017-07-28] MEDS ORDERED: NON-FORMULARY ITEM (Duloxetine Hcl [Cymbalta] 60 MG) PO SCH (10:00)
[2017-07-28] MEDS: Cymbalta 30 MG Capsule PO SCH (10:23)
[2017-07-28] MEDS: Vasotec 10 MG PO SCH ×2 (10:23→20:40)
[2017-07-29] MEDS: FLAGYL 500 MG IVPB 500 MG/100 ML BAG IV SCH ×5 (00:18→23:39)
[2017-07-29] MEDS: DILAUDID 2 MG INJECTION IV PRN ×3 (00:40→08:34)
[2017-07-29] MEDS: Phenergan 25 MG INJ IV PRN ×4 (02:47→20:18)
[2017-07-29] MEDS: Sodium Chloride 0.9% W/ 20 mEq KCl/LITER 1,000 ML IV SCH ×5 (04:51→23:39)
[2017-07-29] MEDS: ENOXAPARIN SODIUM SQ SCH (08:35)
[2017-07-29] MEDS: Cymbalta 30 MG Capsule PO SCH (08:35)
[2017-07-29] MEDS: Vasotec 10 MG PO SCH ×2 (08:35→22:52)
--- NOTE | 2017-07-29 08:47 | PCM.NOTE ---
Date and Time: 07/29/17 0846 Subjective Assessment: pain not well controlled, dilaudid helps for an hour and a half or so then pain is severe again. not any better from yesterday, still having pain and loose stools Objective Exam General Appearance: no apparent distress, obese Skin Exam: normal color, warm, dry Respiratory Exam: normal breath sounds, lungs clear, No respiratory distress Gastrointestinal/Abdomen Exam: tenderness, No distention, No mass, No guarding Extremity Exam: normal inspection, normal range of motion OBJECTIVE DATA Vital Signs: Vital Signs - 24 hr Temp Pulse Resp BP Pulse Ox 07/29/17 08:00 98.3 F 87 16 133/61 96 07/29/17 04:00 97.2 F 82 16 125/62 99 07/29/17 00:00 97.9 F 79 18 128/60 100 07/28/17 20:00 97.9 F 85 20 130/81 98 07/28/17 16:00 98.6 F 93 H 16 130/62 93 L 07/28/17 11:37 98.6 F 93 H 16 130/62 93 L Pain Assessment - Last Documented Pain Intensity 3 Pain Scale Used 0-10 Pain Scale Intake and Output: Intake & Output 07/26/17 07/27/17 07/28/17 07/29/17 11:59 11:59 11:59 11:59 Intake Total 0 0 3349 Output Total 3800 3200 Balance 0 -3800 149 Weight 108.409 kg Multi-Disciplinary Progress Notes: Multi-Disciplinary Progress Notes 07/28/17 09:10 (created 07/28/17 12:50) Case Management Note by Almita Gillespie DISCHARGE PLAN REVIEWED, DENIES NEEDS. INDEPENDENT WITH ALL ADL'S. PLAN TO RETURN HOME TO PRE EPISODIC LEVEL OF [facility]. Initialized on 07/28/17 12:50 - END OF NOTE Assessment/Plan (1) Colitis Current Visit: Yes Status: Acute Onset Date: ~07/27/17 Assessment & Plan: on levaquin and flagyl, will add IV solu medrol. change to glass blower helper for pain control. will need colonoscopy when current illness resolves. Code(s): K52.9 - NONINFECTIVE GASTROENTERITIS AND COLITIS, UNSPECIFIED (2) Abdominal pain Current Visit: Yes Status: Acute Onset Date: ~07/27/17 Qualifiers: Abdominal location: generalized Qualified Code(s): R10.84 - Generalized abdominal pain Code(s): R10.9 - UNSPECIFIED ABDOMINAL PAIN
[2017-07-29] MEDS: DILAUDID 1 MG/1ML PCA IV PRN (09:07)
[2017-07-29] MEDS: solu-MEDROL 125 MG IV SCH ×3 (09:16→23:39)
[2017-07-29] MEDS: Levofloxacin 500MG/100ML D5W 500 MG/100 ML BAG IV SCH (11:08)
[2017-07-29] MEDS: BENADRYL 50 MG/ML IV PRN ×3 (12:09→23:39)
[2017-07-30] MEDS: Sodium Chloride 0.9% W/ 20 mEq KCl/LITER 1,000 ML IV SCH ×3 (02:56→21:50)
[2017-07-30] MEDS: DILAUDID 1 MG/1ML PCA IV PRN ×4 (03:00→17:28)
[2017-07-30] MEDS: FLAGYL 500 MG IVPB 500 MG/100 ML BAG IV SCH ×4 (05:47→23:32)
[2017-07-30] MEDS: solu-MEDROL 125 MG IV SCH ×4 (05:47→23:23)
[2017-07-30] MEDS: BENADRYL 50 MG/ML IV PRN ×4 (05:48→23:28)
[2017-07-30 06:08] LABS: Basophil (Absolute #) 0 (0-0.4); Eosinophil (Absolute #) 0 (0-0.5); Granulocyte Absolute (ANC) 6.66 (1.4-6.9); Granulocytes % 86.5 % (36.0-66.0); Hematocrit 36.6 % (35-47); Lymphocyte (Absolute #) 0.77 (1.0-4.6); Mean Corpuscular Hemoglobin 25.9 pg (26-32); Mean Corpuscular Hgb Concent. 32.8 g/dl (32-36); Mean Platelet Volume 9.4 fl (6-9.5); Monocyte (Absolute #) 0.27 (0.0-1.3); Monocytes % 3.5 % (0.0-12.0); Platelet Count 210 K/mm3 (150-450); Red Blood Count 4.63 M/mm3 (4.1-5.4); Red Cell Distribution Width 16.2 % (11.5-14.0); White Blood Count 7.7 K/mm3 (4.0-10.5)
[2017-07-30 06:25] LABS: ALBUMIN 3.3 g/dL (3.5-5.0); ALKALINE PHOSPHATASE 54 U/L (38-126); ANION GAP 12.9 MEQ/L (5-15); BILIRUBIN,TOTAL < 0.10 mg/dL (0.2-1.3); BLOOD UREA NITROGEN 8 mg/dL (7-17); CHLORIDE 106 mmol/L (98-107); Carbon Dioxide 27 mmol/L (22-30); Creatinine 1 0.53 mg/dL (0.52-1.04); Glucose 165 mg/dL (74-106); Potassium 4.1 mmol/L (3.5-5.1); SGOT/AST 12 U/L (14-36); SGPT/ALT 14 U/L (0-35); SODIUM 141 mmol/L (137-145); Total Protein 6.2 g/dL (6.3-8.2)
[2017-07-30] MEDS: Phenergan 25 MG INJ IV PRN ×3 (08:40→23:20)
--- NOTE | 2017-07-30 08:55 | PCM.NOTE ---
Date and Time: 07/30/17 0854 Subjective Assessment: doing a little better, pain slightly improved. no new problems or concerns, not much appetite Objective Exam General Appearance: no apparent distress, alert Skin Exam: normal color, warm, dry Respiratory Exam: normal breath sounds, lungs clear, No respiratory distress Cardiovascular Exam: regular rate/rhythm, normal heart sounds Gastrointestinal/Abdomen Exam: soft, tenderness, No normal bowel sounds, No distention, No guarding Extremity Exam: normal inspection, normal range of motion OBJECTIVE DATA Vital Signs: Vital Signs - 24 hr Temp Pulse Resp BP Pulse Ox 07/30/17 07:49 97 07/30/17 07:07 98.7 F 79 16 128/62 98 07/30/17 04:00 98.1 F 82 16 129/74 98 07/30/17 03:00 98 07/30/17 00:00 97.5 F 93 H 18 117/61 98 07/29/17 20:00 97.7 F 77 18 137/69 98 07/29/17 16:00 97.5 F 87 16 124/68 96 07/29/17 12:00 98 F 105 H 16 140/89 94 L Pain Assessment - Last Documented Pain Intensity 4 Pain Scale Used 0-10 Pain Scale Intake and Output: Intake & Output 07/27/17 07/28/17 07/29/17 07/30/17 11:59 11:59 11:59 11:59 Intake Total 3349 3390 Output Total 3800 3425 Balance -451 -35 Lab Results: Lab Results-Last 24 Hours 07/30/17 07/30/17 Range/Units 05:35 05:35 WBC 7.7 (4.0-10.5) K/mm3 RBC 4.63 (4.1-5.4) M/mm3 Hgb 12.0 (12.0-16.0) gm/dl Hct 36.6 (35-47) % MCV 79.0 (78-100) fl MCH 25.9 L (26-32) pg MCHC 32.8 (32-36) g/dl RDW 16.2 H (11.5-14.0) % Plt Count 210 (150-450) K/mm3 MPV 9.4 (6-9.5) fl Gran % 86.5 H (36.0-66.0) % Eos # (Auto) 0 (0-0.5) Absolute Lymphs (auto) 0.77 L (1.0-4.6) Absolute Monos (auto) 0.27 (0.0-1.3) Lymphocytes % 10.0 L (24.0-44.0) % Monocytes % 3.5 (0.0-12.0) % Eosinophils % 0.0 (0.00-5.0) % Basophils % 0.0 (0.0-0.4) % Absolute Granulocytes 6.66 (1.4-6.9) Basophils # 0 (0-0.4) Sodium 141 (137-145) mmol/L Potassium 4.1 (3.5-5.1) mmol/L Chloride 106 (98-107) mmol/L Carbon Dioxide 27 (22-30) mmol/L Anion Gap 12.9 (5-15) MEQ/L BUN 8 (7-17) mg/dL Creatinine 0.53 (0.52-1.04) mg/dL Estimated GFR > 60.0 ML/MIN Glucose 165 H (74-106) mg/dL Calcium 9.0 (8.4-10.2) mg/dL Total Bilirubin < 0.10 L (0.2-1.3) mg/dL AST 12 L (14-36) U/L ALT 14 (0-35) U/L Alkaline Phosphatase 54 (38-126) U/L Serum Total Protein 6.2 L (6.3-8.2) g/dL Albumin 3.3 L (3.5-5.0) g/dL Assessment/Plan (1) Colitis Current Visit: Yes Status: Acute Onset Date: ~07/27/17 Assessment & Plan: continue IV levaquin, flagyl and solu medrol. showing improvement, will advance diet today Code(s): K52.9 - NONINFECTIVE GASTROENTERITIS AND COLITIS, UNSPECIFIED (2) Abdominal pain Current Visit: Yes Status: Acute Onset Date: ~07/27/17 Qualifiers: Abdominal location: generalized Qualified Code(s): R10.84 - Generalized abdominal pain Code(s): R10.9 - UNSPECIFIED ABDOMINAL PAIN
[2017-07-30] MEDS: Levofloxacin 500MG/100ML D5W 500 MG/100 ML BAG IV SCH (10:19)
[2017-07-30] MEDS: Vasotec 10 MG PO SCH ×2 (10:20→21:26)
[2017-07-30] MEDS: Cymbalta 30 MG Capsule PO SCH (10:20)
[2017-07-30] MEDS: ENOXAPARIN SODIUM SQ SCH (10:20)
[2017-07-31] MEDS: solu-MEDROL 125 MG IV SCH ×2 (05:41→11:53)
[2017-07-31] MEDS: BENADRYL 50 MG/ML IV PRN ×2 (05:41→11:54)
[2017-07-31] MEDS: Phenergan 25 MG INJ IV PRN (05:41)
[2017-07-31] MEDS: FLAGYL 500 MG IVPB 500 MG/100 ML BAG IV SCH ×2 (05:41→11:54)
[2017-07-31 05:51] LABS: BASOPHIL % 0.1 % (0.0-0.4); Basophil (Absolute #) 0.01 (0-0.4); Eosinophil (Absolute #) 0 (0-0.5); Granulocyte Absolute (ANC) 9.89 (1.4-6.9); Granulocytes % 86.6 % (36.0-66.0); Hematocrit 36.8 % (35-47); Hemoglobin 11.9 gm/dl (12.0-16.0); Lymphocyte (Absolute #) 0.97 (1.0-4.6); Lymphocytes % 8.5 % (24.0-44.0); Mean Cell Volume 79.7 fl (78-100); Mean Corpuscular Hgb Concent. 32.3 g/dl (32-36); Mean Platelet Volume 9.3 fl (6-9.5); Monocyte (Absolute #) 0.55 (0.0-1.3); Monocytes % 4.8 % (0.0-12.0); Platelet Count 239 K/mm3 (150-450); Red Blood Count 4.62 M/mm3 (4.1-5.4); Red Cell Distribution Width 16.4 % (11.5-14.0); White Blood Count 11.4 K/mm3 (4.0-10.5)
[2017-07-31 05:56] LABS: Mean Corpuscular Hemoglobin 25.7 pg (26-32)
[2017-07-31 06:18] LABS: ALBUMIN 3.4 g/dL (3.5-5.0); ALKALINE PHOSPHATASE 55 U/L (38-126); ANION GAP 13.4 MEQ/L (5-15); BILIRUBIN,TOTAL < 0.10 mg/dL (0.2-1.3); BLOOD UREA NITROGEN 12 mg/dL (7-17); CHLORIDE 106 mmol/L (98-107); Calcium 8.7 mg/dL (8.4-10.2); Carbon Dioxide 27 mmol/L (22-30); Glucose 208 mg/dL (74-106); SGOT/AST 21 U/L (14-36); SGPT/ALT 16 U/L (0-35); SODIUM 142 mmol/L (137-145); Total Protein 6.2 g/dL (6.3-8.2)
[2017-07-31] MEDS: Sodium Chloride 0.9% W/ 20 mEq KCl/LITER 1,000 ML IV SCH (07:53)
[2017-07-31] MEDS: ENOXAPARIN SODIUM SQ SCH (09:10)
[2017-07-31] MEDS: Vasotec 10 MG PO SCH (09:10)
[2017-07-31] MEDS: Cymbalta 30 MG Capsule PO SCH (09:10)
[2017-07-31] MEDS: Levofloxacin 500MG/100ML D5W 500 MG/100 ML BAG IV SCH (09:10)
--- NOTE | 2017-07-31 11:39 | PCM.DCORD ---
- Discharge Discharge Date: 07/31/17 Disposition: Home, Self-Care Condition: Fair Prescriptions: New Prednisone 10 mg [Deltasone 10 mg] 40 mg PO DAILY #22 tablet Metronidazole 500 mg [Flagyl 500 MG] 500 mg PO TID #21 tablet Levofloxacin [Levaquin] 500 mg PO DAILY #7 tablet Promethazine HCl 25 mg [Phenergan 25 mg] 25 mg PO Q6H PRN #30 tablet PRN Reason: Nausea Continue Omeprazole 20 MG [Prilosec 20 mg] 20 mg PO BID Enalapril Maleate 10 mg [Vasotec 10 MG] 10 mg PO BID Duloxetine HCl [Cymbalta] 60 mg PO DAILY Tramadol HCl 50 mg [Ultram 50 mg] 50 mg PO Q6H PRN PRN Reason: Pain And/Or Fever Ondansetron ODT 4 MG [Zofran Odt 4 mg] 1 tab PO Q6H PRN PRN #10 tab.rapdis PRN Reason: Nausea/Vomiting Alprazolam [Xanax] 0.5 mg PO Q6H PRN PRN PRN Reason: Anxiety Nitroglycerin 0.4 mg Tablet [Nitrostat 0.4 MG Tablet] 0.4 mg SL Q5MIN PRN MR X 3 PRN PRN Reason: Chest Pain Follow up with: OC HERRERA MD [Primary Care Provider] - 08/04/17 3:30 pm
[2017-07-31] MEDS: DILAUDID 1 MG/1ML PCA IV PRN ×2 (11:59→13:09)
--- NOTE | 2017-07-31 12:00 | PCM.DCORD ---
- Discharge Discharge Date: 07/31/17 Disposition: Home, Self-Care Condition: Fair Prescriptions: New Prednisone 10 mg [Deltasone 10 mg] 40 mg PO DAILY #22 tablet Metronidazole 500 mg [Flagyl 500 MG] 500 mg PO TID #21 tablet Levofloxacin [Levaquin] 500 mg PO DAILY #7 tablet Promethazine HCl 25 mg [Phenergan 25 mg] 25 mg PO Q6H PRN #30 tablet PRN Reason: Nausea Hydrocodone Bit/Acetaminophen [[place] 5-325 Tablet] 1 each PO Q4H PRN #18 tablet MDD 6 PRN Reason: Pain Continue Omeprazole 20 MG [Prilosec 20 mg] 20 mg PO BID Enalapril Maleate 10 mg [Vasotec 10 MG] 10 mg PO BID Duloxetine HCl [Cymbalta] 60 mg PO DAILY Tramadol HCl 50 mg [Ultram 50 mg] 50 mg PO Q6H PRN PRN Reason: Pain And/Or Fever Ondansetron ODT 4 MG [Zofran Odt 4 mg] 1 tab PO Q6H PRN PRN #10 tab.rapdis PRN Reason: Nausea/Vomiting Alprazolam [Xanax] 0.5 mg PO Q6H PRN PRN PRN Reason: Anxiety Nitroglycerin 0.4 mg Tablet [Nitrostat 0.4 MG Tablet] 0.4 mg SL Q5MIN PRN MR X 3 PRN PRN Reason: Chest Pain Instructions: Ulcerative Colitis in Adults Follow up with: OC HERRERA MD [Primary Care Provider] - 08/04/17 3:30 pm Forms: Discharge Instructions
[2017-07-31 12:01] VITALS: O2SAT 98
[2017-07-31 12:05] VITALS: BP 147/86; PULSE 76
--- NOTE | 2017-08-01 17:54 | PCM.DS ---
Discharge Summary Date of Admission: 07/28/17 09:25 Date of Discharge: 07/31/17 Admitting Physician: OC HERRERA Primary Care Provider: OC HERRERA Allergies Allergies meperidine HCl [From Demerol] Allergy (Unknown, Verified 07/27/17 02:22) aspirin Allergy (Verified 07/27/17 02:22) morphine Allergy (Verified 07/27/17 02:22) Hospital Summary - Hospital Course Hospital Course: Ms. Rasheed has a history of recurrent colitis and was found to have a flair of this with ct proven flair. She was treated with flagyl and levaquin and showed slow improvement iv solumedrol was added adn this seemed to improve her symptoms much better she stated. She was requiring enamel buffer for pain initially and still at discharge was having tender abdomen and stools still had some mucous in them but no blood no fevers and was tolerating po. She was discharged to continue the levaquin and flagyl and prednisone taper with plan f/u for outpatient colonscopy when improved. Inspect was reviewed and shows her tramadol intermittently and she states that it doesn't help much with the pain she uses that for her sciatica occasionally given the severity of her pain she was given 3 days supply of percocet as needed. - Vitals & Intake/Output Vital Signs: Vital Signs Temperature 97.8 F 07/31/17 12:00 Pulse Rate 76 07/31/17 12:00 Respiratory Rate 18 07/31/17 12:00 Blood Pressure 147/86 07/31/17 12:00 O2 Sat by Pulse Oximetry 98 07/31/17 13:09 Intake & Output: Intake & Output 07/30/17 07/31/17 08/01/17 08/02/17 11:59 11:59 11:59 11:59 Intake Total 3390 4966 240 Output Total 3425 2700 Balance -35 2266 240 Weight 108.409 kg - Lab Result Diagrams: 07/31/17 05:44 07/31/17 05:44 Discharge Exam General Appearance: no apparent distress, alert Neurologic Exam: alert, oriented x 3, cooperative, normal mood/affect, nml cerebellar function, sensation nml, No motor deficits Skin Exam: normal color, warm, dry Eye Exam: PERRL, EOMI, eyes nml inspection Ears, Nose, Throat Exam: normal ENT inspection, pharynx normal, moist mucous membranes Neck Exam: normal inspection, non-tender, supple, full range of motion Respiratory Exam: normal breath sounds, lungs clear, No respiratory distress Cardiovascular Exam: regular rate/rhythm, normal heart sounds Gastrointestinal/Abdomen Exam: soft, normal bowel sounds, tenderness (diffuse), No mass Extremity Exam: normal inspection, normal range of motion Back Exam: normal inspection, normal range of motion, No CVA tenderness, No vertebral tenderness Pelvic Exam: deferred Rectal Exam: deferred Final Diagnosis/Problem List - Final Discharge Diagnosis/Problem (1) Colitis Status: Acute Onset Date: ~07/27/17 (2) Essential hypertension Status: Chronic - Discharge Discharge Date: 07/31/17 Disposition: Home, Self-Care Condition: Fair Prescriptions: New Prednisone 10 mg [Deltasone 10 mg] 40 mg PO DAILY #22 tablet Metronidazole 500 mg [Flagyl 500 MG] 500 mg PO TID #21 tablet Levofloxacin [Levaquin] 500 mg PO DAILY #7 tablet Promethazine HCl 25 mg [Phenergan 25 mg] 25 mg PO Q6H PRN #30 tablet PRN Reason: Nausea Hydrocodone Bit/Acetaminophen [[place] 5-325 Tablet] 1 each PO Q4H PRN #18 tablet MDD 6 PRN Reason: Pain Continue Omeprazole 20 MG [Prilosec 20 mg] 20 mg PO BID Enalapril Maleate 10 mg [Vasotec 10 MG] 10 mg PO BID Duloxetine HCl [Cymbalta] 60 mg PO DAILY Tramadol HCl 50 mg [Ultram 50 mg] 50 mg PO Q6H PRN PRN Reason: Pain And/Or Fever Ondansetron ODT 4 MG [Zofran Odt 4 mg] 1 tab PO Q6H PRN PRN #10 tab.rapdis PRN Reason: Nausea/Vomiting Alprazolam [Xanax] 0.5 mg PO Q6H PRN PRN PRN Reason: Anxiety Nitroglycerin 0.4 mg Tablet [Nitrostat 0.4 MG Tablet] 0.4 mg SL Q5MIN PRN MR X 3 PRN PRN Reason: Chest Pain Instructions: Ulcerative Colitis in Adults Follow up with: OC HERRERA MD [Primary Care Provider] - 08/04/17 3:30 pm Forms: Discharge Instructions, Work/School Release Form
== END 2017-07-31 13:30 | disposition home or self-care (01) | DRG 392 ==
LOC: ED 02:05 → INTOOBSV 06:33 → MED SURG 06:33 → OBSVTOIN 07-28 09:25
PROVIDERS: ADMIT Family Medicine; ATTEND Family Medicine
DX: K52.9 Noninfective gastroenteritis and colitis, unspecified (principal); I10 Essential (primary) hypertension; R00.0 Tachycardia, unspecified; R19.7 Diarrhea, unspecified; R10.84 Generalized abdominal pain; Z79.899 Other long term (current) drug therapy
CPT/HCPCS: 36000; 36415; 71046; 74177; 80048; 80053; 81000; 82150; 83605; 83690; 84703; 85025; 87040; 87493; 96360; 96365; 96366; 96374; 96375; 96376; 99285; G0378; J1170; J1200; J1650; J1956; J2405; J2550; J2930; A9270-GY

== ENCOUNTER 2017-09-06 12:40 | Emergency (ER) | payer OTHER ==
--- NOTE | 2017-09-06 13:10 | ERPHSYRPT ---
- History of Present Illness Time Seen by Provider: 09/06/17 13:02 Source: patient Exam Limitations: no limitations Patient Subjective Stated Complaint: here for htn and abd cramping started today , pt states pink on paper after voiding, off meds for 5 days because she found outshe was Triage Nursing Assessment: pt alert, resp easy, skin w/d/p. no edama noted, Physician History: The patient is a spontaneous 3 at possibly 10 weeks complaining of mild pelvic cramping and pink vaginal discharge that began today. Her blood pressure on a home cuff was also elevated at 180/100. She has irregular menstrual periods. Her last menstrual period was 16 May. Last week she took a home test and was found to be positive. She saw one of her local doctor's last week and the quantitative hCG was 161. She has not had any ultrasound. She was taken off of her daily medicines last week that included Cymbalta, Prilosec, and enalapril. She called both of her local doctor's today to discuss with them her cramping and her high blood pressure. She was not able to get in and was told to come to the ER for further evaluation. Her past medical history is significant for hypertension, depression, GERD, miscarriages , colitis. Timing/Duration: today Severity: moderate Modifying Factors: Improves With: nothing Associated Symptoms: other (pelvic cramping and vaginal bleeding) Allergies/Adverse Reactions: meperidine HCl [From Demerol] Allergy (Unknown, Verified 09/06/17 12:54) aspirin Allergy (Verified 09/06/17 12:54) morphine Allergy (Verified 09/06/17 12:54) Home Medications: Duloxetine HCl [Cymbalta] 60 mg PO DAILY 08/08/15 [History] Enalapril Maleate 10 mg [Vasotec 10 MG] 10 mg PO BID 08/08/15 [History] Omeprazole 20 MG [Prilosec 20 mg] 20 mg PO BID 08/08/15 [History] Tramadol HCl 50 mg [Ultram 50 mg] 50 mg PO Q6H PRN 08/08/15 [History] Alprazolam [Xanax] 0.5 mg PO Q6H PRN PRN 07/27/17 [History] Hx Tetanus, Diphtheria Vaccination/Date Given: Yes Hx Influenza Vaccination/Date Given: Yes Hx Pneumococcal Vaccination/Date Given: No Immunizations Up to Date: Yes - Review of Systems Constitutional: No Fever, No Chills Eyes: No Symptoms Ears, Nose, & Throat: No Symptoms Respiratory: No Cough, No Dyspnea Cardiac: No Chest Pain, No Edema, No Syncope Abdominal/Gastrointestinal: Other (abd cramping) Genitourinary Symptoms: Vaginal Bleeding Musculoskeletal: No Back Pain, No Neck Pain Skin: No Rash Neurological: No Dizziness, No Focal Weakness, No Sensory Changes Psychological: No Symptoms Endocrine: No Symptoms Hematologic/Lymphatic: No Symptoms Immunological/Allergic: No Symptoms All Other Systems: Reviewed and Negative - Past Medical History Pertinent Past Medical History: Yes Neurological History: No Pertinent History, Migraines ENT History: No Pertinent History Cardiac History: Hypertension Respiratory History: No Pertinent History Endocrine Medical History: No Pertinent History Musculoskeletal History: Fibromyalgia GI Medical History: Colitis, GERD History: Other Psycho-Social History: No Pertinent History Female Reproductive Disorders: No Pertinent History Other Medical History: fibro - Past Surgical History Past Surgical History: Yes Neuro Surgical History: No Pertinent History Cardiac: Cardiac Catheterization Respiratory: No Pertinent History Gastrointestinal: Cholecystectomy Genitourinary: No Pertinent History Musculoskeletal: No Pertinent History Female Surgical History: No Pertinent History Other Surgical History: childbirth x three, - Social History Smoking Status: Never smoker Exposure to second hand smoke: No Drug Use: none Patient Lives Alone: No Significant Family History: no pertinent family hx - Female History Hx Last Menstrual Period: may 2017 Hx Now: Yes - Nursing Vital Signs Nursing Vital Signs: Initial Vital Signs Temperature 97.7 F 09/06/17 12:48 Pulse Rate 125 H 09/06/17 12:48 Respiratory Rate 20 09/06/17 12:48 Blood Pressure 200/126 09/06/17 12:48 O2 Sat by Pulse Oximetry 100 09/06/17 12:48 Pain Scale Pain Intensity 6 - Physical Exam General Appearance: no apparent distress, alert Eye Exam: PERRL/EOMI, eyes nml inspection Ears, Nose, Throat Exam: normal ENT inspection, TMs normal, pharynx normal, moist mucous membranes Neck Exam: normal inspection, non-tender, supple, full range of motion Respiratory Exam: normal breath sounds, lungs clear, No respiratory distress Cardiovascular Exam: regular rate/rhythm, normal heart sounds, normal peripheral pulses Gastrointestinal/Abdomen Exam: soft, normal bowel sounds, No tenderness, No mass Pelvic Exam: not done Rectal Exam: not done Back Exam: normal inspection, normal range of motion, No CVA tenderness, No vertebral tenderness Extremity Exam: normal inspection, normal range of motion, pelvis stable Neurologic Exam: alert, oriented x 3, cooperative, normal mood/affect, nml cerebellar function, nml station & gait, sensation nml, No motor deficits Skin Exam: normal color, warm, dry, No rash Lymphatic Exam: No adenopathy SpO2 Interpretation: normal SpO2: 100 Oxygen Delivery: Room Air - Radiology Ultrasound Exam OB Ultrasound: tele radiology report, IUP, Other (tiny intrauterine gestational sac too small scraper hand calculate gestation age per Dr Travis.) Ordered Tests: Active Orders 24 hr Category Date Time Status Clean Catch Urine Specimen STAT Care 09/06/17 13:15 Active IV Insertion STAT Care 09/06/17 13:15 Active OB <14 WKS 1ST GESTATION [US] Stat Exams 09/06/17 13:15 Completed CBC W DIFF Stat Lab 09/06/17 13:33 Completed CMP Stat Lab 09/06/17 13:33 Completed HCG, Quantitative (Inhouse) Stat Lab 09/06/17 13:33 Completed UA W/RFX UR CULTURE Stat Lab 09/06/17 13:57 Completed Urine Triage Profile Stat Lab 09/06/17 13:43 Completed Medication Summary Discontinued Medications Generic Name Dose Route Start Last Admin Trade Name Freq PRN Reason Stop Dose Admin Sodium Chloride 1,000 mls @ 999 mls/hr 09/06/17 13:15 09/06/17 14:07 Sodium Chloride 0.9% 1000 Ml IV 09/06/17 14:15 999 mls/hr .Q1H1M STA Administration Sodium Chloride Confirm 09/06/17 14:06 Sodium Chloride 0.9% 1000 Ml Administered 09/06/17 14:07 Dose 1,000 mls @ ud .ROUTE .STK-MED ONE Potassium Chloride 20 meq 09/06/17 14:34 Klor Con 10 Meq PO 09/06/17 14:35 STAT ONE Lab/Rad Data: Laboratory Result Diagrams 09/06/17 13:33 09/06/17 13:33 Laboratory Results 09/06/17 09/06/17 09/06/17 Range/Units 13:57 13:43 13:33 WBC (4.0-10.5) K/mm3 RBC (4.1-5.4) M/mm3 Hgb (12.0-16.0) gm/dl Hct (35-47) % MCV (78-100) fl MCH (26-32) pg MCHC (32-36) g/dl RDW (11.5-14.0) % Plt Count (150-450) K/mm3 MPV (6-9.5) fl Gran % (36.0-66.0) % Eos # (Auto) (0-0.5) Absolute Lymphs (auto) (1.0-4.6) Absolute Monos (auto) (0.0-1.3) Lymphocytes % (24.0-44.0) % Monocytes % (0.0-12.0) % Eosinophils % (0.00-5.0) % Basophils % (0.0-0.4) % Absolute Granulocytes (1.4-6.9) Basophils # (0-0.4) Sodium 141 (137-145) mmol/L Potassium 3.3 L (3.5-5.1) mmol/L Chloride 106 (98-107) mmol/L Carbon Dioxide 25 (22-30) mmol/L Anion Gap 13.2 (5-15) MEQ/L BUN 15 (7-17) mg/dL Creatinine 0.65 (0.52-1.04) mg/dL Estimated GFR > 60.0 ML/MIN Glucose 123 H (74-106) mg/dL Calcium 9.1 (8.4-10.2) mg/dL Total Bilirubin 0.30 (0.2-1.3) mg/dL AST 22 (14-36) U/L ALT 16 (0-35) U/L Alkaline Phosphatase 54 (38-126) U/L Serum Total Protein 6.7 (6.3-8.2) g/dL Albumin 4.0 (3.5-5.0) g/dL Beta HCG, Quant 1352.4 mIU/ml Ur Collection Type CLEAN CATCH Urine Color YELLOW (YELLOW) Urine Appearance CLEAR (CLEAR) Urine pH 5.0 (5-6) Ur Specific [place] 1.020 (1.005-1.025) Urine Protein NEGATIVE (Negative) Urine Ketones NEGATIVE (NEGATIVE) Urine Blood NEGATIVE (0-5) Todd/ul Urine Nitrite NEGATIVE (NEGATIVE) Urine Bilirubin NEGATIVE (NEGATIVE) Urine Urobilinogen NORMAL (0-1) mg/dL Ur Leukocyte Esterase NEGATIVE (NEGATIVE) Urine Culture Reflexed NO (NO) Urine Glucose NEGATIVE (NEGATIVE) mg/dL Urine Opiates Level NEGATIVE (NEGATIVE) Ur Methadone NEGATIVE (NEGATIVE) Urine Barbiturates NEGATIVE (NEGATIVE) Ur Phencyclidine (PCP) NEGATIVE (NEGATIVE) Urine Amphetamine NEGATIVE (NEGATIVE) U Benzodiazepine Level NEGATIVE (NEGATIVE) Urine Cocaine NEGATIVE (NEGATIVE) Urine Marijuana (THC) NEGATIVE (NEGATIVE) Specimen Received 09-06-17 1400 09/06/17 Range/Units 13:33 WBC 9.8 (4.0-10.5) K/mm3 RBC 5.07 (4.1-5.4) M/mm3 Hgb 13.2 (12.0-16.0) gm/dl Hct 40.0 (35-47) % MCV 78.9 (78-100) fl MCH 26.0 (26-32) pg MCHC 33.0 (32-36) g/dl RDW 17.2 H (11.5-14.0) % Plt Count 252 (150-450) K/mm3 MPV 9.5 (6-9.5) fl Gran % 54.9 (36.0-66.0) % Eos # (Auto) 0.16 (0-0.5) Absolute Lymphs (auto) 3.35 (1.0-4.6) Absolute Monos (auto) 0.88 (0.0-1.3) Lymphocytes % 34.0 (24.0-44.0) % Monocytes % 8.9 (0.0-12.0) % Eosinophils % 1.6 (0.00-5.0) % Basophils % 0.6 (0.0-0.4) % Absolute Granulocytes 5.39 (1.4-6.9) Basophils # 0.06 (0-0.4) Sodium (137-145) mmol/L Potassium (3.5-5.1) mmol/L Chloride (98-107) mmol/L Carbon Dioxide (22-30) mmol/L Anion Gap (5-15) MEQ/L BUN (7-17) mg/dL Creatinine (0.52-1.04) mg/dL Estimated GFR ML/MIN Glucose (74-106) mg/dL Calcium (8.4-10.2) mg/dL Total Bilirubin (0.2-1.3) mg/dL AST (14-36) U/L ALT (0-35) U/L Alkaline Phosphatase (38-126) U/L Serum Total Protein (6.3-8.2) g/dL Albumin (3.5-5.0) g/dL Beta HCG, Quant mIU/ml Ur Collection Type Urine Color (YELLOW) Urine Appearance (CLEAR) Urine pH (5-6) Ur Specific [place] (1.005-1.025) Urine Protein (Negative) Urine Ketones (NEGATIVE) Urine Blood (0-5) Todd/ul Urine Nitrite (NEGATIVE) Urine Bilirubin (NEGATIVE) Urine Urobilinogen (0-1) mg/dL Ur Leukocyte Esterase (NEGATIVE) Urine Culture Reflexed (NO) Urine Glucose (NEGATIVE) mg/dL Urine Opiates Level (NEGATIVE) Ur Methadone (NEGATIVE) Urine Barbiturates (NEGATIVE) Ur Phencyclidine (PCP) (NEGATIVE) Urine Amphetamine (NEGATIVE) U Benzodiazepine Level (NEGATIVE) Urine Cocaine (NEGATIVE) Urine Marijuana (THC) (NEGATIVE) Specimen Received - Progress Progress: improved Progress Note: 09/06/17 14:57 BP is now 140/85. Counseled pt/family regarding: lab results, diagnosis, need for follow-up, rad results - Departure Time of Disposition: 14:57 Departure Disposition: Home Clinical Impression: , Hypokalemia Condition: Stable Critical Care Time: No Referrals: VILMA WANG [Primary Care Provider] - Additional Instructions: You have an early that was seen to be intrauterine by ultrasound. You have serum potassium level was mildly low and you were given potassium 20 mEq orally in the ER. Your blood pressure normalized in the ER. Please follow- up with your OB doctor in the next 1-2 days.
[2017-09-06 13:39] LABS: BASOPHIL % 0.6 % (0.0-0.4); Basophil (Absolute #) 0.06 (0-0.4); Eosinophil % 1.6 % (0.00-5.0); Eosinophil (Absolute #) 0.16 (0-0.5); Granulocyte Absolute (ANC) 5.39 (1.4-6.9); Granulocytes % 54.9 % (36.0-66.0); Hemoglobin 13.2 gm/dl (12.0-16.0); Lymphocyte (Absolute #) 3.35 (1.0-4.6); Mean Cell Volume 78.9 fl (78-100); Mean Platelet Volume 9.5 fl (6-9.5); Monocyte (Absolute #) 0.88 (0.0-1.3); Monocytes % 8.9 % (0.0-12.0); Platelet Count 252 K/mm3 (150-450); Red Blood Count 5.07 M/mm3 (4.1-5.4); Red Cell Distribution Width 17.2 % (11.5-14.0); White Blood Count 9.8 K/mm3 (4.0-10.5)
[2017-09-06 14:00] LABS: ALKALINE PHOSPHATASE 54 U/L (38-126); ANION GAP 13.2 MEQ/L (5-15); BLOOD UREA NITROGEN 15 mg/dL (7-17); CHLORIDE 106 mmol/L (98-107); Calcium 9.1 mg/dL (8.4-10.2); Carbon Dioxide 25 mmol/L (22-30); Creatinine 1 0.65 mg/dL (0.52-1.04); Glucose 123 mg/dL (74-106); Potassium 3.3 mmol/L (3.5-5.1); SGOT/AST 22 U/L (14-36); SGPT/ALT 16 U/L (0-35); SODIUM 141 mmol/L (137-145); Total Protein 6.7 g/dL (6.3-8.2)
[2017-09-06] MEDS ORDERED: Sodium Chloride 0.9% 1000 ML 1,000 ML ONE (14:06)
[2017-09-06] MEDS: Sodium Chloride 0.9% 1000 ML 1,000 ML IV STA (14:07)
[2017-09-06 14:09] LABS: Appearance CLEAR (CLEAR); Bilirubin NEGATIVE (NEGATIVE); Blood NEGATIVE Ery/ul (0-5); Glucose NEGATIVE (NEGATIVE); Ketones NEGATIVE (NEGATIVE); Leukocyte Esterase NEGATIVE (NEGATIVE); Nitrite NEGATIVE (NEGATIVE); Protein,Urine Dip NEGATIVE (Negative); Urobilinogen NORMAL mg/dL (0-1)
--- NOTE | 2017-09-06 14:16 | XRAY ---
Indication: Cramping and bleeding. Two-dimensional transvaginal early OB ultrasound performed. Comparison: None for this . Uterus is anteverted and demonstrates a tiny 3.4 mm gestational sac, too small to calculate gestational age. No pole, heart tones, or yolk sac. A few tiny cervical nabothian cysts. Left ovary measures 4.4 x 3.6 x 2.1 cm and the right measures 3.0 x 3.2 x 1.7 cm. No suspicious adnexal mass or free fluid. Impression: Tiny intrauterine gestational sac, too small to calculate gestational age. No pole/heart tones. Correlate with serial beta hCG and follow-up sonogram regarding viability. Incidental nabothian cysts.
[2017-09-06 14:17] LABS: HCG, Quantitative (Inhouse) 1352.4 mIU/ml
[2017-09-06 14:18] LABS: Amphetamine,Urine NEGATIVE (NEGATIVE); Barbiturate,Urine NEGATIVE (NEGATIVE); Benzodiazepine,Urine NEGATIVE (NEGATIVE); Cocaine,Urine NEGATIVE (NEGATIVE); Methadone,Urine NEGATIVE (NEGATIVE); Opiate,Urine NEGATIVE (NEGATIVE); PCP,Urine NEGATIVE (NEGATIVE); THC,Urine NEGATIVE (NEGATIVE)
[2017-09-06] MEDS ORDERED: Klor Con 10 MEQ PO ONE (14:54)
[2017-09-06] MEDS: Klor Con 10 MEQ PO ONE (14:57)
[2017-09-06 15:13] VITALS: BP 148/96; PULSE 78; O2SAT 98
== END 2017-09-06 15:12 | disposition home or self-care (01) ==
LOC: ED 12:40
DX: O26.891 Other specified pregnancy related conditions, first trimester (principal); R10.2 Pelvic and perineal pain; N89.8 Other specified noninflammatory disorders of vagina; E87.6 Hypokalemia; I10 Essential (primary) hypertension; F32.9 Major depressive disorder, single episode, unspecified; K21.9 Gastro-esophageal reflux disease without esophagitis; Z79.899 Other long term (current) drug therapy
CPT/HCPCS: 36000; 36415; 76801; 80053; 80307; 81002; 84702; 85025; 96360; 99284; A9270-GY

== ENCOUNTER 2017-09-25 07:52 | Emergency (ER) | payer OTHER ==
--- NOTE | 2017-09-25 08:19 | ERPHSYRPT ---
- History of Present Illness Time Seen by Provider: 09/25/17 08:09 Source: patient Exam Limitations: no limitations Patient Subjective Stated Complaint: Pt states "I went to [facility] and they told me there was nothing they could do for me and sent me to the ER. I have worked for 5 days straight and now I have this knot on my left inner thigh and it is warm and really hurts. I have never had a blood clot but my mom had allot of them." Triage Nursing Assessment: Pt aert and oriented X 3, skin pwd. pt ambulates with an upright steady gait, able to speak in clear full sentences. PT has small red area noted to left inner thigh, warm to touch. Physician History: This 42-year-old white female 7 para 3 who states she is 7 weeks . She arrives with complaint of pain in her left heel thigh symptoms for 5 days she is having the area of tenderness in the distal left thigh she states that she does have pain that radiates up to her groin. Past medical history includes migraines, GERD, high blood pressure, colitis, fibromyalgia. Past surgical history includes cardiac catheter, cholecystectomy. Timing/Duration: day(s) (5 days) Severity: moderate Modifying Factors: Improves With: nothing Associated Symptoms: No nausea, No vomiting, No abdominal pain, No shortness of breath, No heartburn, No diaphoresis, No cough, No chills, No chest pain, No fever, No headaches, No loss of appetite, No malaise, No rash, No syncope, No seizure, No weakness Allergies/Adverse Reactions: meperidine HCl [From Demerol] Allergy (Unknown, Verified 09/06/17 12:54) aspirin Allergy (Verified 09/06/17 12:54) morphine Allergy (Verified 09/06/17 12:54) Home Medications: Labetalol HCl 100 mg [Trandate 100 MG] 100 mg PO BID 09/25/17 [History] Hx Tetanus, Diphtheria Vaccination/Date Given: Yes Hx Influenza Vaccination/Date Given: Yes Hx Pneumococcal Vaccination/Date Given: No Immunizations Up to Date: Yes - Review of Systems Constitutional: No Fever, No Chills Eyes: No Symptoms Ears, Nose, & Throat: No Symptoms Respiratory: No Cough, No Dyspnea Cardiac: No Chest Pain, No Edema, No Syncope Abdominal/Gastrointestinal: No Abdominal Pain, No Nausea, No Vomiting, No Diarrhea Genitourinary Symptoms: (7 weeks 1 day ), No Dysuria Musculoskeletal: Other (pain in the left medial thigh) Skin: No Rash Neurological: No Dizziness, No Focal Weakness, No Sensory Changes Psychological: No Symptoms Endocrine: No Symptoms (Did not have a long one) All Other Systems: Reviewed and Negative - Past Medical History Pertinent Past Medical History: Yes Neurological History: No Pertinent History, Migraines ENT History: No Pertinent History Cardiac History: Hypertension Respiratory History: No Pertinent History Endocrine Medical History: No Pertinent History Musculoskeletal History: Fibromyalgia GI Medical History: Colitis, GERD History: Other Psycho-Social History: No Pertinent History Female Reproductive Disorders: No Pertinent History Other Medical History: fibro - Past Surgical History Past Surgical History: Yes Neuro Surgical History: No Pertinent History Cardiac: Cardiac Catheterization Respiratory: No Pertinent History Gastrointestinal: Cholecystectomy Genitourinary: No Pertinent History Musculoskeletal: No Pertinent History Female Surgical History: No Pertinent History Other Surgical History: childbirth x three, - Social History Smoking Status: Never smoker Exposure to second hand smoke: No Drug Use: none Patient Lives Alone: No Significant Family History: no pertinent family hx - Female History Hx Last Menstrual Period: unknown Hx Now: Yes Expected Date of Delivery: 05/13/18 - Nursing Vital Signs Nursing Vital Signs: Initial Vital Signs Temperature 99.5 F 09/25/17 07:59 Pulse Rate 108 H 09/25/17 07:59 Respiratory Rate 18 09/25/17 07:59 Blood Pressure 176/95 09/25/17 07:59 O2 Sat by Pulse Oximetry 97 09/25/17 07:59 Pain Scale Pain Intensity 4 - Physical Exam General Appearance: mild distress Eye Exam: PERRL/EOMI, eyes nml inspection Ears, Nose, Throat Exam: normal ENT inspection, TMs normal, pharynx normal, moist mucous membranes Neck Exam: normal inspection, non-tender, supple, full range of motion Respiratory Exam: normal breath sounds, lungs clear, No respiratory distress Cardiovascular Exam: regular rate/rhythm, normal heart sounds, normal peripheral pulses Gastrointestinal/Abdomen Exam: soft, normal bowel sounds, No tenderness, No mass Back Exam: normal inspection, normal range of motion, No CVA tenderness, No vertebral tenderness Extremity Exam: normal range of motion, other (thigh tender medially with palpation) Neurologic Exam: alert, oriented x 3, cooperative, crayon painter II-XII nml as tested, normal mood/affect, nml cerebellar function, nml station & gait, sensation nml, No motor deficits SpO2 Interpretation: normal (97%) SpO2: 97 Oxygen Delivery: Room Air - Course Nursing assessment & vital signs reviewed: Yes - Radiology Ultrasound Exam Left Venous Lower Extremity Ultrasound: Other (discussed with geospatial technologist: no dvt large amount varicose veins, phlebitis localized listal medial thigh.) Ordered Tests: Active Orders 24 hr Category Date Time Status IV Insertion STAT Care 09/25/17 08:14 Active VENOUS UNILAT/LIMITED EXTREMIT [US] Stat Exams 09/25/17 10:45 Taken CBC W DIFF Stat Lab 09/25/17 08:10 Completed CMP Stat Lab 09/25/17 08:10 Completed D-DIMER QUANTITATION Stat Lab 09/25/17 08:10 Completed HCG QUALITATIVE,SERUM Stat Lab 09/25/17 08:10 Completed PROTIME WITH INR Stat Lab 09/25/17 08:10 Completed PTT Stat Lab 09/25/17 08:10 Completed Lab/Rad Data: Laboratory Result Diagrams 09/25/17 08:10 09/25/17 08:10 Laboratory Results 09/25/17 09/25/17 09/25/17 Range/Units 08:10 08:10 08:10 WBC (4.0-10.5) K/mm3 RBC (4.1-5.4) M/mm3 Hgb (12.0-16.0) gm/dl Hct (35-47) % MCV (78-100) fl MCH (26-32) pg MCHC (32-36) g/dl RDW (11.5-14.0) % Plt Count (150-450) K/mm3 MPV (6-9.5) fl Gran % (36.0-66.0) % Eos # (Auto) (0-0.5) Absolute Lymphs (auto) (1.0-4.6) Absolute Monos (auto) (0.0-1.3) Lymphocytes % (24.0-44.0) % Monocytes % (0.0-12.0) % Eosinophils % (0.00-5.0) % Basophils % (0.0-0.4) % Absolute Granulocytes (1.4-6.9) Basophils # (0-0.4) PT 10.8 (9.95-12.35) SECONDS INR 0.93 (0.8-3.0) APTT 28.5 (25.3-37.0) SECONDS D-Dimer 631 H* (215-500) ng/mL Sodium 138 (137-145) mmol/L Potassium 3.8 (3.5-5.1) mmol/L Chloride 105 (98-107) mmol/L Carbon Dioxide 26 (22-30) mmol/L Anion Gap 11.5 (5-15) MEQ/L BUN 17 (7-17) mg/dL Creatinine 0.66 (0.52-1.04) mg/dL Estimated GFR > 60.0 ML/MIN Glucose 112 H (74-106) mg/dL Calcium 9.2 (8.4-10.2) mg/dL Total Bilirubin 0.30 (0.2-1.3) mg/dL AST 12 L (14-36) U/L ALT 14 (0-35) U/L Alkaline Phosphatase 59 (38-126) U/L Serum Total Protein 6.7 (6.3-8.2) g/dL Albumin 4.0 (3.5-5.0) g/dL Serum , Qual POSITIVE (Negative) 09/25/17 Range/Units 08:10 WBC 9.5 (4.0-10.5) K/mm3 RBC 4.47 (4.1-5.4) M/mm3 Hgb 11.8 L (12.0-16.0) gm/dl Hct 35.8 (35-47) % MCV 80.1 (78-100) fl MCH 26.3 (26-32) pg MCHC 33.0 (32-36) g/dl RDW 17.6 H (11.5-14.0) % Plt Count 217 (150-450) K/mm3 MPV 9.6 H (6-9.5) fl Gran % 57.1 (36.0-66.0) % Eos # (Auto) 0.15 (0-0.5) Absolute Lymphs (auto) 3.00 (1.0-4.6) Absolute Monos (auto) 0.86 (0.0-1.3) Lymphocytes % 31.6 (24.0-44.0) % Monocytes % 9.1 (0.0-12.0) % Eosinophils % 1.6 (0.00-5.0) % Basophils % 0.6 (0.0-0.4) % Absolute Granulocytes 5.41 (1.4-6.9) Basophils # 0.06 (0-0.4) PT (9.95-12.35) SECONDS INR (0.8-3.0) APTT (25.3-37.0) SECONDS D-Dimer (215-500) ng/mL Sodium (137-145) mmol/L Potassium (3.5-5.1) mmol/L Chloride (98-107) mmol/L Carbon Dioxide (22-30) mmol/L Anion Gap (5-15) MEQ/L BUN (7-17) mg/dL Creatinine (0.52-1.04) mg/dL Estimated GFR ML/MIN Glucose (74-106) mg/dL Calcium (8.4-10.2) mg/dL Total Bilirubin (0.2-1.3) mg/dL AST (14-36) U/L ALT (0-35) U/L Alkaline Phosphatase (38-126) U/L Serum Total Protein (6.3-8.2) g/dL Albumin (3.5-5.0) g/dL Serum , Qual (Negative) - Progress Progress: improved Progress Note: 09/25/17 08:56 42-year-old white female who states she is 7 weeks arrives with complaint of pain in her left medial thigh for 5 days. She is tender with palpation in the left medial thigh especially distally. But she states that pain radiates up to her groin. Patient does have an elevated d-dimer of 630. Venous Doppler of the left lower extremity has been ordered. 09/25/17 11:02 Patient with a large amount of varicosities in the left lower leg. Patient with localized phlebitis (superficial) distal left medial thigh. I've discussed this with Dr. Patterson. Will have patient apply warm packs to the area Tylenol for pain follow-up with Dr. Patterson next week. - Departure Time of Disposition: 11:03 Departure Disposition: Home Clinical Impression: Left thigh pain, Phlebitis, Varicose veins during , antepartum Condition: Fair Critical Care Time: No Referrals: VILMA PATTERSON [Primary Care Provider] - Additional Instructions: Return home. Warm packs to area. Tylenol every 4-6 hours as needed for pain. Follow-up with Dr. Patterson. Return for acute distress or for severe symptoms.
[2017-09-25 08:23] LABS: BASOPHIL % 0.6 % (0.0-0.4); Basophil (Absolute #) 0.06 (0-0.4); Eosinophil % 1.6 % (0.00-5.0); Eosinophil (Absolute #) 0.15 (0-0.5); Granulocyte Absolute (ANC) 5.41 (1.4-6.9); Granulocytes % 57.1 % (36.0-66.0); Hematocrit 35.8 % (35-47); Hemoglobin 11.8 gm/dl (12.0-16.0); Lymphocytes % 31.6 % (24.0-44.0); Mean Cell Volume 80.1 fl (78-100); Mean Platelet Volume 9.6 fl (6-9.5); Monocyte (Absolute #) 0.86 (0.0-1.3); Monocytes % 9.1 % (0.0-12.0); Platelet Count 217 K/mm3 (150-450); Red Blood Count 4.47 M/mm3 (4.1-5.4); Red Cell Distribution Width 17.6 % (11.5-14.0); White Blood Count 9.5 K/mm3 (4.0-10.5)
[2017-09-25 08:25] LABS: Mean Corpuscular Hemoglobin 26.3 pg (26-32)
[2017-09-25 08:41] LABS: ALKALINE PHOSPHATASE 59 U/L (38-126); ANION GAP 11.5 MEQ/L (5-15); BLOOD UREA NITROGEN 17 mg/dL (7-17); CHLORIDE 105 mmol/L (98-107); Calcium 9.2 mg/dL (8.4-10.2); Carbon Dioxide 26 mmol/L (22-30); Creatinine 1 0.66 mg/dL (0.52-1.04); Glucose 112 mg/dL (74-106); Potassium 3.8 mmol/L (3.5-5.1); SGOT/AST 12 U/L (14-36); SGPT/ALT 14 U/L (0-35); SODIUM 138 mmol/L (137-145); Total Protein 6.7 g/dL (6.3-8.2)
[2017-09-25 08:44] LABS: INR 0.93 (0.8-3.0)
[2017-09-25 08:47] LABS: PTT 28.5 SECONDS (25.3-37.0)
[2017-09-25 11:07] VITALS: BP 137/72; PULSE 80; O2SAT 98
--- NOTE | 2017-09-25 21:03 | XRAY ---
Indication: Medial thigh pain. Erythema. Two-dimensional sonogram and color Doppler imaging of the major venous vessels of the left leg was performed. Comparison: None No thrombus seen in the examined deep venous vessels of the left leg including greater saphenous vein. Veins demonstrate normal compressibility. Venous waveforms are normal with and without augmentation. Targeted ultrasound over the medial thigh, region of interest demonstrates superficial thrombophlebitis. Impression: Medial thigh superficial thrombophlebitis. Remaining left leg negative for DVT. Comment: Preliminary report was given.
== END 2017-09-25 11:12 | disposition home or self-care (01) ==
LOC: ED 07:52
DX: O22.01 Varicose veins of lower extremity in pregnancy, first trimester (principal); M79.652 Pain in left thigh; O22.21 Superficial thrombophlebitis in pregnancy, first trimester; Z3A.01 Less than 8 weeks gestation of pregnancy
CPT/HCPCS: 36000; 36415; 80053; 84703; 85025; 85379; 85610; 85730; 93971; 99284

== ENCOUNTER 2018-01-24 03:24 | Observation (INO) | payer OTHER ==
[2018-01-24 03:42] LABS: Appearance SLIGHTLY CLOUDY (CLEAR); Bilirubin NEGATIVE (NEGATIVE); Blood NEGATIVE Ery/ul (0-5); Glucose NEGATIVE (NEGATIVE); Ketones NEGATIVE (NEGATIVE); Leukocyte Esterase NEGATIVE (NEGATIVE); Nitrite NEGATIVE (NEGATIVE); Protein,Urine Dip 30 (Negative); Specific Gravity 1.027 (1.005-1.025); Urobilinogen NEGATIVE mg/dL (0-1)
[2018-01-24 03:54] VITALS: PULSE 105
[2018-01-24] MEDS ORDERED: Lactated Ringers 1,000 ML IV ONE (04:17)
[2018-01-24] MEDS ORDERED: Lactated Ringers 1,000 ML IV SCH ×2 (04:30→07:30)
[2018-01-24 08:05] VITALS: BP 156/80
--- NOTE | 2018-01-24 09:24 | XRAY ---
Indication: Evaluate cervical length. Limited transvaginal OB ultrasound performed to evaluate cervical length. Cervix is closed measuring 4.6 cm in length.
== END 2018-01-24 09:40 | disposition home or self-care (01) ==
LOC: OB 03:24 → UNDOADMOB 03:24 → UNDODISOB 09:40
PROVIDERS: ADMIT Family Medicine; ATTEND Family Medicine
DX: Z34.82 Encounter for supervision of other normal pregnancy, second trimester (principal)
CPT/HCPCS: 76817; 81001; G0378

== ENCOUNTER 2018-01-31 11:32 | Observation (INO) | payer OTHER ==
[2018-01-31 12:13] VITALS: BP 134/62; PULSE 83
== END 2018-01-31 12:30 | disposition home or self-care (01) ==
LOC: OB 11:32
PROVIDERS: ADMIT Family Medicine; ATTEND Family Medicine
DX: Z34.82 Encounter for supervision of other normal pregnancy, second trimester (principal)
CPT/HCPCS: G0378

== ENCOUNTER 2018-11-27 23:33 | Emergency (ER) | payer OTHER ==
[2018-11-28 00:15] VITALS: BP 156/106; PULSE 116; O2SAT 99
[2018-11-28] MEDS ORDERED: Rocephin 1000 MG INJ IM ONE (00:37)
--- NOTE | 2018-11-28 00:37 | ERPHSYRPT ---
- History of Present Illness Time Seen by Provider: 11/28/18 00:25 Source: patient Exam Limitations: no limitations Patient Subjective Stated Complaint: Pt states day 6 of fever and cough. Coughing up brown/green sputum. Was seen at [facility] on 11/24/18-given steroid injection, flu swab negative. Complains of head and back pain due to coughing. States she feels like she can't get a deep breath due to pain. Triage Nursing Assessment: Pt skin hot, pink, dry. Lung sounds coarse on posterior left, clear anteriorly. Pt has wet cough. Physician History: 43 y/o white female presents with 6 day h/o coughing. today pt has a low grade fever. she was seen at [facility] 6 days ago and given a steroid injection. flu swab negative. sx worsening. abnl colored phlegm. pt requests cxr Timing/Duration: today (fever), day(s) (6) Cough Quality/Degree: moderate, productive cough, sputum Possible Cause: no prior episodes Modifying Factors: Improves With: coughing Associated Symptoms: fever, cough, No chest pain/soreness Allergies/Adverse Reactions: meperidine HCl [From Demerol] Allergy (Unknown, Verified 01/24/18 03:59) aspirin Allergy (Verified 01/24/18 03:59) morphine Allergy (Verified 01/24/18 03:59) Home Medications: Vits W-Ca,Fe,FA(<1Mg) [] 1 tab PO HS 01/24/18 [History] Duloxetine HCl 30 mg [Cymbalta 30 MG Capsule] 90 mg PO DAILY 11/28/18 [ History] Enalapril Maleate 10 mg [Vasotec 10 MG] 10 mg PO BID 11/28/18 [History] Omeprazole Magnesium [Prilosec Otc] 20 mg PO DAILY 11/28/18 [History] Hx Tetanus, Diphtheria Vaccination/Date Given: No Hx Influenza Vaccination/Date Given: No Hx Pneumococcal Vaccination/Date Given: No - Review of Systems Constitutional: Fever Eyes: No Symptoms Ears, Nose, & Throat: No Symptoms Respiratory: Cough Cardiac: No Symptoms Abdominal/Gastrointestinal: No Symptoms Genitourinary Symptoms: No Symptoms Musculoskeletal: No Symptoms Skin: No Symptoms Neurological: No Symptoms Psychological: No Symptoms Endocrine: No Symptoms Hematologic/Lymphatic: No Symptoms Immunological/Allergic: No Symptoms All Other Systems: Reviewed and Negative - Past Medical History Pertinent Past Medical History: Yes Neurological History: No Pertinent History, Migraines ENT History: No Pertinent History Cardiac History: Hypertension Respiratory History: No Pertinent History Endocrine Medical History: No Pertinent History Musculoskeletal History: Fibromyalgia GI Medical History: Colitis, GERD History: Other Psycho-Social History: No Pertinent History Female Reproductive Disorders: No Pertinent History Other Medical History: fibro - Past Surgical History Past Surgical History: Yes Neuro Surgical History: No Pertinent History Cardiac: Cardiac Catheterization Respiratory: No Pertinent History Gastrointestinal: Cholecystectomy Genitourinary: No Pertinent History Musculoskeletal: No Pertinent History Female Surgical History: No Pertinent History Other Surgical History: childbirth x four, - Social History Smoking Status: Never smoker Exposure to second hand smoke: No Drug Use: none Patient Lives Alone: No Significant Family History: no pertinent family hx - Female History Hx Last Menstrual Period: currently Hx Now: No - Nursing Vital Signs Nursing Vital Signs: Initial Vital Signs Temperature 99.8 F 11/28/18 00:07 Pulse Rate 116 H 11/28/18 00:07 Respiratory Rate 18 11/28/18 00:07 Blood Pressure 156/106 11/28/18 00:07 O2 Sat by Pulse Oximetry 99 11/28/18 00:07 Pain Scale Pain Intensity 7 - Physical Exam General Appearance: mild distress, alert Eye Exam: PERRL/EOMI, eyes nml inspection Ears, Nose, Throat Exam: normal ENT inspection, moist mucous membranes Neck Exam: normal inspection, non-tender, supple, full range of motion Respiratory Exam: normal breath sounds, lungs clear, airway intact, No chest tenderness, No respiratory distress Cardiovascular Exam: regular rate/rhythm, normal heart sounds, normal peripheral pulses Gastrointestinal/Abdomen Exam: soft, normal bowel sounds, No tenderness Pelvic Exam: not done Rectal Exam: not done Back Exam: normal inspection, normal range of motion, No CVA tenderness, No vertebral tenderness Extremity Exam: normal inspection, normal range of motion, pelvis stable Neurologic Exam: alert, oriented x 3, cooperative, log deckman II-XII nml as tested Skin Exam: normal color, warm, dry Lymphatic Exam: No adenopathy SpO2 Interpretation: normal SpO2: 99 O2 Delivery: Room Air - Course Nursing assessment & vital signs reviewed: Yes Ordered Tests: Active Orders 24 hr Category Date Time Status CHEST 1 VIEW (PORTABLE) Stat Exams 11/28/18 00:39 Taken Medication Summary Discontinued Medications Generic Name Dose Route Start Last Admin Trade Name Flakita PRN Reason Stop Dose Admin Hydrocodone Bitart/Acetaminophen 10 ml 11/28/18 00:38 11/28/18 01:02 Hydrocodone-Acetamin 2.5-108/5 Ml Solution PO 11/28/18 00:39 10 ml STAT STA Administration Hydrocodone Bitart/Acetaminophen Confirm 11/28/18 00:56 Hydrocodone-Acetamin 2.5-108/5 Ml Solution Administered 11/28/18 00:57 Dose 10 ml .ROUTE .STK-MED ONE Ceftriaxone Sodium 1,000 mg 11/28/18 00:37 11/28/18 01:02 Rocephin 1000 Mg Inj IM 11/28/18 00:38 1,000 mg STAT ONE Administration Ceftriaxone Sodium Confirm 11/28/18 00:56 Rocephin 1000 Mg Inj Administered 11/28/18 00:57 Dose 1,000 mg .ROUTE .STK-MED ONE Lidocaine HCl Confirm 11/28/18 00:57 Xylocaine 1% Hcl 20 Ml Mdv Administered 11/28/18 00:58 Dose 3 ml .ROUTE .STK-MED ONE Methylprednisolone Sodium Succinate 125 mg 11/28/18 00:38 11/28/18 01:02 Solu-Medrol 125 Mg IM 11/28/18 00:39 125 mg STAT ONE Administration Methylprednisolone Sodium Succinate Confirm 11/28/18 00:56 Solu-Medrol 125 Mg Administered 11/28/18 00:57 Dose 125 mg .ROUTE .STK-MED ONE - Progress Progress: re-examined, unchanged Air Movement: good Progress Note: 11/28/18 01:14 cxr-no acute process Counseled pt/family regarding: diagnosis, need for follow-up, rad results - Departure Departure Disposition: Home Clinical Impression: Bronchitis Condition: Stable Critical Care Time: No Referrals: VILMA WANG [Primary Care Provider] - Additional Instructions: drink plenty of fluids. follow up with primary doctor for persistent symptoms Forms: Work/School Release Form Prescriptions: Azithromycin 250 mg [Zithromax 250 MG TABLET] 250 mg PO ZPACK #6 tablet Hydrocodone Bit/Acetaminophen [Hydrocodone-Acetaminophen Soln] 10 ml PO Q6H # 120 ml Prednisone 10 mg [Deltasone 10 mg] 10 mg PO TID #12 tablet
[2018-11-28] MEDS ORDERED: solu-MEDROL 125 MG IM ONE (00:38)
[2018-11-28] MEDS ORDERED: HYDROCODONE-ACETAMIN 2.5-108/5 ML SOLUTION PO STA (00:38)
[2018-11-28] MEDS ORDERED: Rocephin 1000 MG INJ ONE (00:56)
[2018-11-28] MEDS ORDERED: HYDROCODONE-ACETAMIN 2.5-108/5 ML SOLUTION ONE (00:56)
[2018-11-28] MEDS ORDERED: solu-MEDROL 125 MG ONE (00:56)
[2018-11-28] MEDS ORDERED: XYLOCAINE 1% HCL 20 ML MDV ONE (00:57)
--- NOTE | 2018-11-28 09:45 | XRAY ---
Indication: Fever and cough. Comparison: July 27, 2017. Single PA chest demonstrates new minimal lingular discoid atelectasis/scarring with stable incidental scattered calcified granulomas. Remaining heart, lungs, and bony thorax normal.
== END 2018-11-28 01:28 | disposition home or self-care (01) ==
LOC: ED 23:33
DX: J40 Bronchitis, not specified as acute or chronic (principal); R05 Cough; R50.9 Fever, unspecified; Z79.899 Other long term (current) drug therapy
CPT/HCPCS: 71045; 96372; 99284; J0696; J2930; A9270-GY

== ENCOUNTER 2019-02-21 20:41 | Emergency (ER) | payer OTHER ==
[2019-02-21] MEDS ORDERED: Sodium Chloride 0.9% 1000 ML 1,000 ML IV STA (20:56)
[2019-02-21] MEDS ORDERED: SUBLIMAZE 100 MCG/2 ML IV ONE ×2 (20:56→22:08)
[2019-02-21] MEDS ORDERED: Sodium Chloride 0.9% 1000 ML 1,000 ML ONE (21:02)
[2019-02-21] MEDS ORDERED: SUBLIMAZE 100 MCG/2 ML ONE ×2 (21:02→22:09)
[2019-02-21 21:19] LABS: Absolute Neutrophil Ct (ANC) 3.77 (1.4-6.9); BASOPHIL % 0.9 % (0.0-0.4); Basophil (Absolute #) 0.07 (0-0.4); Eosinophil % 6.8 % (0.00-5.0); Hematocrit 38.6 % (35-47); Hemoglobin 12.4 gm/dl (12.0-16.0); Lymphocyte (Absolute #) 2.57 (1.0-4.6); Lymphocytes % 34.8 % (24.0-44.0); Mean Corpuscular Hemoglobin 24.4 pg (26-32); Mean Corpuscular Hgb Concent. 32.1 g/dl (32-36); Mean Platelet Volume 9.6 fl (7.5-11.0); Monocyte (Absolute #) 0.48 (0.0-1.3); Monocytes % 6.5 % (0.0-12.0); Platelet Count 258 K/mm3 (150-450); Red Blood Count 5.08 M/mm3 (4.1-5.4); Red Cell Distribution Width 17.3 % (11.5-14.0); White Blood Count 7.4 K/mm3 (4.0-10.5)
[2019-02-21 21:38] LABS: INR 1.02 (0.8-3.0); PROTIME 11.5 SECONDS (9.95-12.35)
[2019-02-21 21:54] LABS: ALBUMIN 4.2 g/dL (3.5-5.0); ALKALINE PHOSPHATASE 66 U/L (38-126); ANION GAP 11.2 MEQ/L (5-15); BLOOD UREA NITROGEN 14 mg/dL (7-17); CHLORIDE 107 mmol/L (98-107); Calcium 9.4 mg/dL (8.4-10.2); Carbon Dioxide 25 mmol/L (22-30); Glucose 137 mg/dL (74-106); NT PRO BNP 207 pg/mL (0-450); Potassium 3.3 mmol/L (3.5-5.1); SGOT/AST 20 U/L (14-36); SGPT/ALT 14 U/L (0-35); SODIUM 141 mmol/L (137-145); Total Protein 7.6 g/dL (6.3-8.2)
[2019-02-21 22:05] LABS: Appearance SLIGHTLY CLOUDY (CLEAR); Bacteria RARE /HPF (NEGATIVE); Bilirubin NEGATIVE (NEGATIVE); Blood MODERATE Ery/ul (0-5); Epithelial Cells RARE /HPF (FEW); Glucose NEGATIVE (NEGATIVE); Hyaline Casts 0-2 /LPF (0-2); Ketones NEGATIVE (NEGATIVE); Leukocyte Esterase LARGE (NEGATIVE); Mucus SLIGHT /HPF (NEGATIVE); Nitrite NEGATIVE (NEGATIVE); Protein,Urine Dip 30 (Negative); Specific Gravity 1.023 (1.005-1.025); Urobilinogen NEGATIVE mg/dL (0-1); WBC >100 /HPF (0-5)
[2019-02-21 22:07] LABS: Budding Yeast Occasional /HPF (NEGATIVE)
[2019-02-21 23:11] VITALS: BP 154/106
[2019-02-21] MEDS ORDERED: ROCEPHIN 1 Gm-D5w 50 ml Bag** 1 G/50 ML IVPB IV STA (23:30)
[2019-02-21] MEDS ORDERED: ROCEPHIN 1 Gm-D5w 50 ml Bag** 1 G/50 ML IVPB IV ONE (23:36)
[2019-02-21 23:55] VITALS: PULSE 96; O2SAT 99
[2019-02-22] MEDS ORDERED: GI COCKTAIL 45 ML (Maalox/Lidocaine) PO ONE (00:10)
[2019-02-22] MEDS ORDERED: XYLOCAINE HCl Viscous ONE (00:18)
[2019-02-22] MEDS ORDERED: MAALOX ES 30 ML UNIT DOSE ONE (00:19)
--- NOTE | 2019-02-22 01:06 | ERPHSYRPT ---
- History of Present Illness Time Seen by Provider: 02/21/19 21:00 Historian: patient Exam Limitations: no limitations Patient Subjective Stated Complaint: pt states that the chest pain began yesterday, pt states that the chest pain worsen today at work, pt states that she feels tired Triage Nursing Assessment: pt ambulated into the er, pt states 7/10 pain to chest that radiated to back, pt is hypertensive, pt is tachycardic, heart tone clear, lung sound clear, pt states pressure to chest, pt state SOB Physician History: ppatient is a 43-year-old white female with a complaint of chest pain. The chest pain actually started yesterday substernal goes through the back she notes some palpitations. She does have a strong family history her cholesterol is elevated and she has some diabetes. She also has some hypertension she did have a catheter 3 years ago production tool and a stress test. Timing/Duration: yesterday Activities at Onset: activity Quality: dullness, pressure Location: substernal Chest Pain Radiation: back Severity of Pain-Max: mild Severity of Pain-Current: mild Modifying Factors: Improves With: nothing Associated Symptoms: shortness of breath Prior Chest Pain/Cardiac Workup: cardiac cath, stress test (stress test and cardiac catheter done about 3 or 4 years ago) Aspirin Treatment Today: 81 mg x 1 Allergies/Adverse Reactions: meperidine HCl [From Demerol] Allergy (Unknown, Verified 02/21/19 20:58) aspirin Allergy (Verified 02/21/19 20:58) morphine Allergy (Verified 02/21/19 20:58) Home Medications: Vits W-Ca,Fe,FA(<1Mg) [] 1 tab PO HS 01/24/18 [History] Duloxetine HCl 30 mg [Cymbalta 30 MG Capsule] 90 mg PO DAILY 11/28/18 [ History] Enalapril Maleate 10 mg [Vasotec 10 MG] 10 mg PO BID 11/28/18 [History] Omeprazole Magnesium [Prilosec Otc] 20 mg PO DAILY 11/28/18 [History] Hx Tetanus, Diphtheria Vaccination/Date Given: Yes Hx Influenza Vaccination/Date Given: Yes Hx Pneumococcal Vaccination/Date Given: No - Review of Systems Constitutional: No Fever, No Chills Eyes: No Symptoms Ears, Nose, & Throat: No Symptoms Respiratory: No Cough, No Dyspnea Cardiac: Chest Pain, Palpitations, No Edema, No Syncope Abdominal/Gastrointestinal: No Abdominal Pain, No Nausea, No Vomiting, No Diarrhea Genitourinary Symptoms: No Dysuria Musculoskeletal: No Back Pain, No Neck Pain Skin: No Rash Neurological: No Dizziness, No Focal Weakness, No Sensory Changes Psychological: No Symptoms Endocrine: No Symptoms All Other Systems: Reviewed and Negative - Past Medical History Pertinent Past Medical History: Yes Neurological History: No Pertinent History, Migraines ENT History: No Pertinent History Cardiac History: Hypertension Respiratory History: No Pertinent History Endocrine Medical History: No Pertinent History Musculoskeletal History: Fibromyalgia GI Medical History: Colitis, GERD History: Other Psycho-Social History: No Pertinent History Female Reproductive Disorders: No Pertinent History Other Medical History: fibro - Past Surgical History Past Surgical History: Yes Neuro Surgical History: No Pertinent History Cardiac: Cardiac Catheterization Respiratory: No Pertinent History Gastrointestinal: Cholecystectomy Genitourinary: No Pertinent History Musculoskeletal: No Pertinent History Female Surgical History: No Pertinent History Other Surgical History: childbirth x four, - Social History Smoking Status: Never smoker Exposure to second hand smoke: No Drug Use: none Patient Lives Alone: No Significant Family History: no pertinent family hx - Female History Hx Now: No - Nursing Vital Signs Nursing Vital Signs: Initial Vital Signs Temperature 98.6 F 02/21/19 20:48 Pulse Rate 126 H 02/21/19 20:48 Respiratory Rate 17 02/21/19 20:48 Blood Pressure 161/105 02/21/19 20:48 O2 Sat by Pulse Oximetry 99 02/21/19 20:48 Pain Scale Pain Intensity 6 - Physical Exam General Appearance: mild distress, alert Eye Exam: PERRL/EOMI, eyes nml inspection Ears, Nose, Throat Exam: normal ENT inspection, moist mucous membranes Neck Exam: normal inspection, non-tender, supple, full range of motion Respiratory Exam: normal breath sounds, lungs clear, No respiratory distress Cardiovascular Exam: regular rate/rhythm, normal heart sounds Gastrointestinal/Abdomen Exam: soft, No tenderness, No mass Back Exam: normal inspection, No CVA tenderness, No vertebral tenderness Extremity Exam: normal inspection, normal range of motion Neurologic Exam: alert, oriented x 3, cooperative, normal mood/affect, sensation nml, No motor deficits Skin Exam: normal color, warm, dry SpO2: 99 - Course Nursing assessment & vital signs reviewed: Yes EKG Interpreted by Me: RATE (65), NORMAL AXIS, NORMAL INTERVALS, NORMAL QRS - Radiology Exams Chest X-ray Interpretation: Negative - CT Exams Chest CT Interpretation: Other (no pulmonary emboli) Ordered Tests: Active Orders 24 hr Category Date Time Status Sheeter Operator STAT Care 02/21/19 20:57 Active EKG-ER Only STAT Care 02/21/19 20:56 Active IV Insertion STAT Care 02/21/19 20:56 Active CHEST 1 VIEW (PORTABLE) Stat Exams 02/21/19 20:57 Taken CHEST WITH CONTRAST [CT] Stat Exams 02/21/19 21:44 Taken AMYLASE Stat Lab 02/21/19 21:20 Completed CBC W DIFF Stat Lab 02/21/19 21:20 Completed CMP Stat Lab 02/21/19 21:20 Completed CULTURE,URINE Stat Lab 02/21/19 21:22 Received D-DIMER QUANTITATIVE Stat Lab 02/21/19 21:20 Completed HCG QUALITATIVE,SERUM Stat Lab 02/21/19 21:20 Completed LIPASE Stat Lab 02/21/19 21:20 Completed Lactic Acid Stat Lab 02/21/19 21:01 Completed MAGNESIUM Stat Lab 02/21/19 21:20 Completed NT PRO BNP Stat Lab 02/21/19 21:20 Completed PROTIME WITH INR Stat Lab 02/21/19 21:20 Completed TROPONIN Q3H Lab 02/21/19 21:00 Completed TROPONIN Q3H Lab 02/22/19 00:04 Completed TROPONIN Q3H Lab 02/22/19 03:00 Ordered TROPONIN Q3H Lab 02/22/19 06:00 Ordered TROPONIN Q3H Lab 02/22/19 09:00 Ordered UA W/RFX UR CULTURE Stat Lab 02/21/19 21:22 Completed Medication Summary Discontinued Medications Generic Name Dose Route Start Last Admin Trade Name Freq PRN Reason Stop Dose Admin Al Hydrox/Mg Hydrox/Simethicone Confirm 02/22/19 00:19 Maalox Es 30 Ml Unit Dose Administered 02/22/19 00:20 Dose 30 ml .ROUTE .STK-MED ONE Fentanyl Citrate 50 mcg 02/21/19 20:56 02/21/19 21:05 Sublimaze 100 Mcg/2 Ml IV 02/21/19 20:57 50 mcg STAT ONE Administration Fentanyl Citrate Confirm 02/21/19 21:02 Sublimaze 100 Mcg/2 Ml Administered 02/21/19 21:03 Dose 100 mcg .ROUTE .STK-MED ONE Fentanyl Citrate 75 mcg 02/21/19 22:08 02/21/19 22:11 Sublimaze 100 Mcg/2 Ml IV 02/21/19 22:09 75 mcg STAT ONE Administration Fentanyl Citrate Confirm 02/21/19 22:09 Sublimaze 100 Mcg/2 Ml Administered 02/21/19 22:10 Dose 100 mcg .ROUTE .STK-MED ONE Sodium Chloride 1,000 mls @ 999 mls/hr 02/21/19 20:56 02/21/19 22:06 Sodium Chloride 0.9% 1000 Ml IV 02/21/19 21:56 Infused .Q1H1M STA Infusion Sodium Chloride Confirm 02/21/19 21:02 Sodium Chloride 0.9% 1000 Ml Administered 02/21/19 21:03 Dose 1,000 mls @ ud .ROUTE .STK-MED ONE Ceftriaxone Sodium/Dextrose 1 g in 50 mls @ 100 mls/hr 02/21/19 23:30 00:33 Rocephin 1 Gm-D5w 50 Ml Bag IV 02/21/19 23:59 Infused STAT STA Infusion Ceftriaxone Sodium/Dextrose Confirm 02/21/19 23:36 Rocephin 1 Gm-D5w 50 Ml Bag Administered 02/21/19 23:37 Dose 1 g in 50 mls @ ud IV .STK-MED ONE Lidocaine HCl Confirm 02/22/19 00:18 Xylocaine Hcl Viscous * Administered 02/22/19 00:19 Dose 15 ml .ROUTE .STK-MED ONE Magnesium Hydroxide 45 ml 02/22/19 00:10 02/22/19 00:19 Gi Cocktail 45 Ml (Maalox/Lidocaine) PO 02/22/19 00:11 45 ml STAT ONE Administration Lab/Rad Data: Laboratory Result Diagrams 02/21/19 21:20 02/21/19 21:20 Laboratory Results 02/22/19 02/21/19 02/21/19 Range/Units 00:04 21:22 21:20 WBC (4.0-10.5) K/mm3 RBC (4.1-5.4) M/mm3 Hgb (12.0-16.0) gm/dl Hct (35-47) % MCV (78-100) fl MCH (26-32) pg MCHC (32-36) g/dl RDW (11.5-14.0) % Plt Count (150-450) K/mm3 MPV (7.5-11.0) fl Gran % (36.0-66.0) % Eos # (Auto) (0-0.5) Absolute Lymphs (auto) (1.0-4.6) Absolute Monos (auto) (0.0-1.3) Lymphocytes % (24.0-44.0) % Monocytes % (0.0-12.0) % Eosinophils % (0.00-5.0) % Basophils % (0.0-0.4) % Absolute Granulocytes (1.4-6.9) Basophils # (0-0.4) PT (9.95-12.35) SECONDS INR (0.8-3.0) D-Dimer (215-500) ng/mL Sodium (137-145) mmol/L Potassium (3.5-5.1) mmol/L Chloride (98-107) mmol/L Carbon Dioxide (22-30) mmol/L Anion Gap (5-15) MEQ/L BUN (7-17) mg/dL Creatinine (0.52-1.04) mg/dL Estimated GFR ML/MIN Glucose (74-106) mg/dL Lactic Acid (0.4-2.0) Calcium (8.4-10.2) mg/dL Magnesium 2.0 (1.6-2.3) mg/dL Total Bilirubin (0.2-1.3) mg/dL AST (14-36) U/L ALT (0-35) U/L Alkaline Phosphatase (38-126) U/L Troponin I < 0.012 (0.000-0.034) ng/mL NT-Pro-B Natriuret Pep (0-450) pg/mL Serum Total Protein (6.3-8.2) g/dL Albumin (3.5-5.0) g/dL Amylase 39 (30-110) U/L Lipase 91 (23-300) U/L Serum , Qual (Negative) Urine Color YELLOW (YELLOW) Urine Appearance SLIGHTLY CLOUDY (CLEAR) Urine pH 5.0 (5-6) Ur Specific [place] 1.023 (1.005-1.025) Urine Protein 30 (Negative) Urine Ketones NEGATIVE (NEGATIVE) Urine Blood MODERATE (0-5) Todd/ul Urine Nitrite NEGATIVE (NEGATIVE) Urine Bilirubin NEGATIVE (NEGATIVE) Urine Urobilinogen NEGATIVE (0-1) mg/dL Ur Leukocyte Esterase LARGE (NEGATIVE) Urine WBC (Auto) >100 (0-5) /HPF Urine RBC (Auto) 6-10 (0-2) /HPF U Hyaline Cast (Auto) 0-2 (0-2) /LPF U Epithel Cells (Auto) RARE (FEW) /HPF Urine Bacteria (Auto) RARE (NEGATIVE) /HPF Urine Mucus (Auto) SLIGHT (NEGATIVE) /HPF Urine Yeast (Budding) Occasional (NEGATIVE) /HPF Urine Culture Reflexed YES (NO) Urine Glucose NEGATIVE (NEGATIVE) mg/dL 02/21/19 02/21/19 02/21/19 Range/Units 21:20 21:20 21:20 WBC (4.0-10.5) K/mm3 RBC (4.1-5.4) M/mm3 Hgb (12.0-16.0) gm/dl Hct (35-47) % MCV (78-100) fl MCH (26-32) pg MCHC (32-36) g/dl RDW (11.5-14.0) % Plt Count (150-450) K/mm3 MPV (7.5-11.0) fl Gran % (36.0-66.0) % Eos # (Auto) (0-0.5) Absolute Lymphs (auto) (1.0-4.6) Absolute Monos (auto) (0.0-1.3) Lymphocytes % (24.0-44.0) % Monocytes % (0.0-12.0) % Eosinophils % (0.00-5.0) % Basophils % (0.0-0.4) % Absolute Granulocytes (1.4-6.9) Basophils # (0-0.4) PT 11.5 (9.95-12.35) SECONDS INR 1.02 (0.8-3.0) D-Dimer 694 H* (215-500) ng/mL Sodium 141 (137-145) mmol/L Potassium 3.3 L (3.5-5.1) mmol/L Chloride 107 (98-107) mmol/L Carbon Dioxide 25 (22-30) mmol/L Anion Gap 11.2 (5-15) MEQ/L BUN 14 (7-17) mg/dL Creatinine 0.90 (0.52-1.04) mg/dL Estimated GFR > 60.0 ML/MIN Glucose 137 H (74-106) mg/dL Lactic Acid (0.4-2.0) Calcium 9.4 (8.4-10.2) mg/dL Magnesium (1.6-2.3) mg/dL Total Bilirubin 0.40 (0.2-1.3) mg/dL AST 20 (14-36) U/L ALT 14 (0-35) U/L Alkaline Phosphatase 66 (38-126) U/L Troponin I (0.000-0.034) ng/mL NT-Pro-B Natriuret Pep 207 (0-450) pg/mL Serum Total Protein 7.6 (6.3-8.2) g/dL Albumin 4.2 (3.5-5.0) g/dL Amylase (30-110) U/L Lipase (23-300) U/L Serum , Qual NEGATIVE (Negative) Urine Color (YELLOW) Urine Appearance (CLEAR) Urine pH (5-6) Ur Specific [place] (1.005-1.025) Urine Protein (Negative) Urine Ketones (NEGATIVE) Urine Blood (0-5) Todd/ul Urine Nitrite (NEGATIVE) Urine Bilirubin (NEGATIVE) Urine Urobilinogen (0-1) mg/dL Ur Leukocyte Esterase (NEGATIVE) Urine WBC (Auto) (0-5) /HPF Urine RBC (Auto) (0-2) /HPF U Hyaline Cast (Auto) (0-2) /LPF U Epithel Cells (Auto) (FEW) /HPF Urine Bacteria (Auto) (NEGATIVE) /HPF Urine Mucus (Auto) (NEGATIVE) /HPF Urine Yeast (Budding) (NEGATIVE) /HPF Urine Culture Reflexed (NO) Urine Glucose (NEGATIVE) mg/dL 02/21/19 02/21/19 02/21/19 Range/Units 21:20 21:01 21:00 WBC 7.4 (4.0-10.5) K/mm3 RBC 5.08 (4.1-5.4) M/mm3 Hgb 12.4 (12.0-16.0) gm/dl Hct 38.6 (35-47) % MCV 76.0 L (78-100) fl MCH 24.4 L (26-32) pg MCHC 32.1 (32-36) g/dl RDW 17.3 H (11.5-14.0) % Plt Count 258 (150-450) K/mm3 MPV 9.6 (7.5-11.0) fl Gran % 51.0 (36.0-66.0) % Eos # (Auto) 0.50 (0-0.5) Absolute Lymphs (auto) 2.57 (1.0-4.6) Absolute Monos (auto) 0.48 (0.0-1.3) Lymphocytes % 34.8 (24.0-44.0) % Monocytes % 6.5 (0.0-12.0) % Eosinophils % 6.8 H (0.00-5.0) % Basophils % 0.9 (0.0-0.4) % Absolute Granulocytes 3.77 (1.4-6.9) Basophils # 0.07 (0-0.4) PT (9.95-12.35) SECONDS INR (0.8-3.0) D-Dimer (215-500) ng/mL Sodium (137-145) mmol/L Potassium (3.5-5.1) mmol/L Chloride (98-107) mmol/L Carbon Dioxide (22-30) mmol/L Anion Gap (5-15) MEQ/L BUN (7-17) mg/dL Creatinine (0.52-1.04) mg/dL Estimated GFR ML/MIN Glucose (74-106) mg/dL Lactic Acid 1.4 (0.4-2.0) Calcium (8.4-10.2) mg/dL Magnesium (1.6-2.3) mg/dL Total Bilirubin (0.2-1.3) mg/dL AST (14-36) U/L ALT (0-35) U/L Alkaline Phosphatase (38-126) U/L Troponin I < 0.012 (0.000-0.034) ng/mL NT-Pro-B Natriuret Pep (0-450) pg/mL Serum Total Protein (6.3-8.2) g/dL Albumin (3.5-5.0) g/dL Amylase (30-110) U/L Lipase (23-300) U/L Serum , Qual (Negative) Urine Color (YELLOW) Urine Appearance (CLEAR) Urine pH (5-6) Ur Specific [place] (1.005-1.025) Urine Protein (Negative) Urine Ketones (NEGATIVE) Urine Blood (0-5) Todd/ul Urine Nitrite (NEGATIVE) Urine Bilirubin (NEGATIVE) Urine Urobilinogen (0-1) mg/dL Ur Leukocyte Esterase (NEGATIVE) Urine WBC (Auto) (0-5) /HPF Urine RBC (Auto) (0-2) /HPF U Hyaline Cast (Auto) (0-2) /LPF U Epithel Cells (Auto) (FEW) /HPF Urine Bacteria (Auto) (NEGATIVE) /HPF Urine Mucus (Auto) (NEGATIVE) /HPF Urine Yeast (Budding) (NEGATIVE) /HPF Urine Culture Reflexed (NO) Urine Glucose (NEGATIVE) mg/dL - Progress Progress: improved Air Movement: good Blood Culture(s) Obtained: No Antibiotics given: Yes, No - Departure Departure Disposition: Home Clinical Impression: Chest pain, Urinary tract infection Condition: Stable Critical Care Time: No Referrals: VILMA WANG [Primary Care Provider] - Instructions: Atypical Chest Pain Prescriptions: Cephalexin Mh 500 mg [Keflex 500 mg] 500 mg PO TID #21 capsule
--- NOTE | 2019-02-22 08:59 | XRAY ---
Indication: Chest pain, short of breath, and elevated d-dimer. Multiple contiguous axial images obtained through the chest using 80 cc Isovue 370 contrast and PE protocol. Comparison: None There is good opacification of the pulmonary arteries to include the lobar and segmental branches. No filling defect or pulmonary embolus. Heart is not enlarged. Aorta is normal in course and caliber. A few tiny left perihilar calcified nodes. No pathologic mediastinal/hilar lymphadenopathy. Lungs demonstrates small left lower lobe calcified granuloma. No suspicious pulmonary mass, infiltrate, or effusion. Bony thorax intact. Limited upper abdomen demonstrates cholecystectomy clips. Impression: 1. Negative pulmonary embolus. No acute cardiopulmonary abnormalities. 2. Incidental evidence for old granulomatous disease. Comment: Preliminary interpretation was made by C. No critical discrepancy.
--- NOTE | 2019-02-22 08:59 | XRAY ---
Indication: Chest pain. Comparison: November 28, 2018. Portable chest demonstrates normal heart, lungs, and bony thorax with stable left mid lung calcified granuloma.
== END 2019-02-22 01:37 | disposition home or self-care (01) ==
LOC: ED 20:41
DX: R07.9 Chest pain, unspecified (principal); N39.0 Urinary tract infection, site not specified
CPT/HCPCS: 36000; 36415; 71045; 71260; 80053; 81001; 81025; 82150; 83605; 83690; 83735; 83880; 84484; 85025; 85379; 85610; 87077; 87086; 87186; 93005; 93041; 96365; 96374; 96375; 96376; 99284; J0696; J3010; A9270-GY

== ENCOUNTER 2019-06-06 18:24 | Emergency (ER) | payer OTHER ==
[2019-06-06 19:29] VITALS: O2SAT 97
[2019-06-06] MEDS ORDERED: BENADRYL 25 MG CAPSULE ONE (19:33)
[2019-06-06] MEDS: BENADRYL 25 MG CAPSULE PO ONE (19:34)
--- NOTE | 2019-06-06 19:38 | ERPHSYRPT ---
- History of Present Illness Time Seen by Provider: 06/06/19 19:15 Source: patient Exam Limitations: no limitations Patient Subjective Stated Complaint: Rash Triage Nursing Assessment: Patient ambulated back to ED and transferred self to bed. Patient A+O X3. Patient's skin pink, warm and dry. Patient complains of light red rash to entire body. Patient denies pain or itching with rash. Patient does complain of abdominal and headache 07/25. Patient states last week she ran a fever as high as 101.0. Patient was tested for flu, strep and covid, which all came back negative. Patient states the rash appeared this am. Physician History: This is a 43-year-old female who was recently evaluated for viral illness. Last week she had negative respiratory panel as well as negative COVID-19 studies. She was having a headache neck pain and myalgias and arthralgias. Those have all improved. Today she noticed abrupt onset of rash on her chest abdomen back and upper extremities. They do not itch. Her fever last week was as high as 101 F. Today she has a normal temperature. Has no nausea vomiting or diarrhea. She has no cough. He has no known exposures to anything she is allergic to and there is no new pets or new soaps being used in the home. No other individuals in the home have similar symptoms. Timing/Duration: today Severity: mild, moderate Location: torso (Anterior and posteriorly), extremities Possible Causes: other (Viral illness) Modifying Factors: Improves With: other (Has not used any medication for this) Associated Symptoms: rash Allergies/Adverse Reactions: meperidine HCl [From Demerol] Allergy (Unknown, Verified 06/06/19 18:50) aspirin Allergy (Verified 06/06/19 18:50) morphine Allergy (Verified 06/06/19 18:50) Home Medications: Duloxetine HCl 30 mg [Cymbalta 30 MG Capsule] 90 mg PO DAILY 11/28/18 [ History] Enalapril Maleate 10 mg [Vasotec 10 MG] 10 mg PO BID 11/28/18 [History] Omeprazole Magnesium [Prilosec Otc] 20 mg PO DAILY 11/28/18 [History] Alprazolam [Xanax] 1 tab PO BIDPRN PRN 06/06/19 [History] Hx Tetanus, Diphtheria Vaccination/Date Given: Yes Hx Influenza Vaccination/Date Given: Yes Hx Pneumococcal Vaccination/Date Given: No Immunizations Up to Date: Yes Travel Risk - International Travel Have you traveled outside of the country in past 3 weeks: No Have you or anyone close to you been diagnosed with or: No Do your reside in a community with a known COVID-19 case?: Yes If Yes where:: [place] - Coronavirus Screening Has patient experienced Coronavirus symptoms: No - Review of Systems Constitutional: No Symptoms Eyes: No Symptoms Ears, Nose, & Throat: No Symptoms Respiratory: No Symptoms Cardiac: No Symptoms Abdominal/Gastrointestinal: No Symptoms Genitourinary Symptoms: No Symptoms Musculoskeletal: No Symptoms Skin: Rash Neurological: No Symptoms Psychological: No Symptoms Endocrine: No Symptoms Hematologic/Lymphatic: No Symptoms Immunological/Allergic: No Symptoms All Other Systems: Reviewed and Negative - Past Medical History Pertinent Past Medical History: Yes Neurological History: No Pertinent History, Migraines ENT History: No Pertinent History Cardiac History: Hypertension Respiratory History: No Pertinent History Endocrine Medical History: No Pertinent History Musculoskeletal History: Fibromyalgia GI Medical History: Colitis, GERD History: Other Psycho-Social History: No Pertinent History Female Reproductive Disorders: No Pertinent History Other Medical History: fibro - Past Surgical History Past Surgical History: Yes Neuro Surgical History: No Pertinent History Cardiac: Cardiac Catheterization Respiratory: No Pertinent History Gastrointestinal: Cholecystectomy Genitourinary: No Pertinent History Musculoskeletal: No Pertinent History Female Surgical History: No Pertinent History Other Surgical History: childbirth x four, - Social History Smoking Status: Never smoker Exposure to second hand smoke: No Drug Use: none Patient Lives Alone: No Significant Family History: no pertinent family hx - Female History Hx Last Menstrual Period: two weeks ago Hx Now: No - Nursing Vital Signs Nursing Vital Signs: Initial Vital Signs Temperature 98.1 F 06/06/19 18:34 Pulse Rate 135 H 06/06/19 18:34 Respiratory Rate 20 06/06/19 18:34 Blood Pressure 170/121 06/06/19 18:34 O2 Sat by Pulse Oximetry 99 06/06/19 18:34 Pain Scale Pain Intensity 6 - Physical Exam General Appearance: no apparent distress, alert, anxiety Eye Exam: PERRL/EOMI, eyes nml inspection Ears, Nose, Throat Exam: normal ENT inspection, moist mucous membranes Neck Exam: normal inspection, non-tender, supple, full range of motion Respiratory Exam: airway intact, No chest tenderness, No respiratory distress Gastrointestinal/Abdomen Exam: No tenderness Pelvic Exam: not done Rectal Exam: not done Back Exam: normal inspection, normal range of motion, No CVA tenderness, No vertebral tenderness Extremity Exam: normal inspection, normal range of motion, pelvis stable Neurologic Exam: alert, oriented x 3, cooperative, 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 Skin Exam: rash (Flat pink coalesced punctate rash on bilateral upper extremities anterior and posterior torso.) Lymphatic Exam: No adenopathy SpO2 Interpretation: normal SpO2: 97 O2 Delivery: Room Air - Course Nursing assessment & vital signs reviewed: Yes Ordered Tests: Medication Summary Generic Name Dose Route Start Last Admin Trade Name Freq PRN Reason Stop Dose Admin Diphenhydramine HCl 50 mg 06/06/19 19:31 Benadryl 25 Mg Capsule PO 06/06/19 19:32 STAT ONE - Progress Progress: unchanged Counseled pt/family regarding: diagnosis, need for follow-up - Departure Departure Disposition: Home Clinical Impression: Viral rash Condition: Stable Critical Care Time: No Referrals: VILMA WANG [Primary Care Provider] - Additional Instructions: Use Benadryl and Pepcid [id number] as discussed. Fill the steroid prescription only if you begin having itching or the rash becomes significantly worse. Return to the emergency room if you are having problems breathing. Prescriptions: Famotidine 20 mg [Pepcid 20 MG] 20 mg PO DAILY #10 tablet Prednisone 10 mg [Deltasone 10 mg] 10 mg PO TID #12 tablet
[2019-06-06 19:46] VITALS: BP 155/103; PULSE 124
== END 2019-06-06 19:44 | disposition home or self-care (01) ==
LOC: ED 18:24
DX: B09 Unspecified viral infection characterized by skin and mucous membrane lesions (principal)
CPT/HCPCS: 99283; A9270-GY

== ENCOUNTER 2023-10-15 08:50 | Emergency (ER) | payer OTHER ==
[2023-10-15 08:57] VITALS: TEMP 97
--- NOTE | 2023-10-15 09:09 | ERPHSYRPT ---
- History of Present Illness Time Seen by Provider: 10/15/23 08:55 Source: patient Exam Limitations: no limitations Patient Subjective Stated Complaint: Pt states "I was just sitting there and I started to have chest pain in the center of my chest that goes around the right side to the middle of my back. It is a different pain than I have had before." Triage Nursing Assessment: Pt presented alert and oriented X 3, skin pwd. PT ambulates with an upright steady gait, able to speak in clear full sentences. PT resting comfortably on the bed. Physician History: Patient is here with chest pain, right-sided, radiates into the back. It does not feel like a tearing, stabbing sensation, no known history of of aortic ane urysms. Patient has no falls or trauma no sudden cardiac in the family. Patient has worn a Holter monitor in the past although has no known coronary artery disease. She has no fever or chills here. Patient is taking PO well. Same number of urinations and defecations. The patient has no signs of altered mental status, nuchal rigidity, signs of meningitis. The patient is up-to-date on all vaccinations. Patient has had her gallbladder out. Allergies/Adverse Reactions: meperidine HCl [From Demerol] Allergy (Unknown, Verified 06/06/19 18:50) aspirin Allergy (Verified 06/06/19 18:50) morphine Allergy (Verified 06/06/19 18:50) Home Medications: Duloxetine HCl 30 mg [Cymbalta 30 MG Capsule] 90 mg PO DAILY 11/28/18 [History] Enalapril Maleate 10 mg [Vasotec 10 MG] 10 mg PO BID 11/28/18 [History] Omeprazole Magnesium [Prilosec Otc] 20 mg PO DAILY 11/28/18 [History] Pregabalin 50 mg [Lyrica 50MG] 50 mg PO TID 10/15/23 [History] Simvastatin [Zocor] 40 mg PO DAILY 10/15/23 [History] carvediloL [Coreg] 6.25 mg PO BID 10/15/23 [History] Hx Tetanus, Diphtheria Vaccination/Date Given: Yes Hx Influenza Vaccination/Date Given: Yes Hx Pneumococcal Vaccination/Date Given: No Immunizations Up to Date: No Travel Risk - International Travel Have you traveled outside of the country in past 3 weeks: No - Emerging Infectious Disease Are you exhibiting symptoms associated with any current EIDs: No - Past Medical History Pertinent Past Medical History: Yes Neurological History: Migraines ENT History: No Pertinent History Cardiac History: Hypertension Respiratory History: No Pertinent History Endocrine Medical History: No Pertinent History Musculoskeletal History: Fibromyalgia GI Medical History: Colitis, GERD History: Other Psycho-Social History: No Pertinent History Female Reproductive Disorders: No Pertinent History Other Medical History: fibro - Past Surgical History Past Surgical History: Yes Neuro Surgical History: No Pertinent History Cardiac: Cardiac Catheterization Respiratory: No Pertinent History Gastrointestinal: Cholecystectomy Genitourinary: No Pertinent History Musculoskeletal: No Pertinent History Female Surgical History: No Pertinent History Other Surgical History: childbirth x four, Significant Family History: no pertinent family hx - Female History Hx Last Menstrual Period: 08/30/2023 Hx Now: No - Social History Smoking Status: Never smoker Exposure to second hand smoke: No Drug Use: none Patient Lives Alone: No - Social Determinants of Health Will the patient participate in the screening: Yes Do you worry about a steady place to live?: No Do you have any problems with any of the following?: No known problems In the past 12 months,have you had to go without utilities?: No Transportation Issues: No Has anyone in your support network made you feel unsafe?: No Have you or anyone in your house had to go without enough: No - Nursing Vital Signs Nursing Vital Signs: Initial Vital Signs Temperature 97.0 F 10/15/23 08:50 Pulse Rate 91 H 10/15/23 08:50 Respiratory Rate 20 10/15/23 08:50 Blood Pressure 156/101 10/15/23 08:50 O2 Sat by Pulse Oximetry 100 10/15/23 08:50 Pain Scale Pain Intensity 4 - Physical Exam SpO2: 100 Comments: 10/15/23 09:08 Review of Systems Constitutional: Negative for fever. HENT: Negative for congestion. Respiratory: Negative for shortness of breath. Cardiovascular: Chest pain radiating into the back Gastrointestinal: Negative for abdominal pain. Genitourinary: Negative for dysuria. Musculoskeletal: Back pain Skin: Negative for rash. Neurological: Negative for headaches. Psychiatric/Behavioral: Negative for behavioral problems. All other systems reviewed and are negative. Physical Exam Vitals signs and nursing note reviewed. Constitutional: Appearance: Patient is well-developed. HENT: Head: Normocephalic and atraumatic. Eyes: Conjunctiva/sclera: Conjunctivae normal. Neck: Musculoskeletal: Normal range of motion. Trachea: No tracheal deviation. Cardiovascular: Rate and Rhythm: Normal rate. Pulmonary: Effort: Pulmonary effort is normal. No respiratory distress. Abdominal: Palpations: Abdomen is soft. Musculoskeletal: General: No deformity. Skin: General: Skin is warm and dry. Neurological/ Psychiatric: Mental Status: Mental status, behavior, interaction with environment is appropriate for patient's age and condition - Course Nursing assessment & vital signs reviewed: Yes EKG Interpreted by Me: Sinus Rhythm (Low quality EKG however no obvious ischemic changes, will plan to repeat later in stay) Ordered Tests: Active Orders 24 hr Category Date Time Status Truck Driver Heavy STAT Care 10/15/23 09:06 Active EKG-ER Only STAT Care 10/15/23 09:05 Active IV Insertion STAT Care 10/15/23 09:05 Active CHEST 2 VIEWS (PA AND LAT) Stat Exams 10/15/23 09:06 Completed CHEST WITH CONTRAST [CT] Stat Exams 10/15/23 10:00 Completed Ultrasound Unilateral Extremities [VENOUS UNILAT/ Exams 10/15/23 11:20 Completed LIMITED EXTREMIT] [US] Stat CBC W DIFF Stat Lab 10/15/23 09:22 Completed CK-Creatinine Phosphokinase Stat Lab 10/15/23 09:22 Completed CMP Stat Lab 10/15/23 09:22 Completed D-DIMER QUANTITATIVE Stat Lab 10/15/23 09:22 Completed NT PRO BNPII Stat Lab 10/15/23 09:22 Completed TROPONIN Q4H Lab 10/15/23 09:22 Completed TROPONIN Q4H Lab 10/15/23 11:25 Completed TROPONIN Q4H Lab 10/15/23 13:34 Received Medication Summary Discontinued Medications Generic Name Dose Route Start Last Admin Trade Name Freq PRN Reason Stop Dose Admin Al Hydrox/Mg Hydrox/Simethicone Confirm 10/15/23 09:11 Mag Hydrox/Al Hydrox/Simeth 30 Ml Udcup Administered 10/15/23 09:12 Dose 30 ml .ROUTE .STK-MED ONE Ketorolac Tromethamine 30 mg 10/15/23 09:07 10/15/23 09:13 Ketorolac Tromethamine 30 Mg/Ml Inj IV 10/15/23 09:08 30 mg STAT ONE Administration Ketorolac Tromethamine Confirm 10/15/23 09:11 Ketorolac Tromethamine 30 Mg/Ml Inj Administered 10/15/23 09:12 Dose 30 mg .ROUTE .STK-MED ONE Lidocaine HCl Confirm 10/15/23 09:11 Lidocaine Hcl 2% Viscous 15 Ml Udcup Administered 10/15/23 09:12 Dose 15 ml .ROUTE .STK-MED ONE Magnesium Hydroxide 45 ml 10/15/23 09:07 10/15/23 09:12 Mag Hydrx/Alum Hyd/Simeth/Lido 45 Ml Bottle PO 10/15/23 09:08 45 ml STAT ONE Administration Ondansetron HCl Confirm 10/15/23 09:21 Ondansetron Hcl 4 Mg/2 Ml Vial Administered 10/15/23 09:22 Dose 4 mg .ROUTE .STK-MED ONE Ondansetron HCl 8 mg 10/15/23 09:24 10/15/23 09:26 Ondansetron Hcl 4 Mg/2 Ml Vial IV 10/15/23 09:25 8 mg STAT ONE Administration Ondansetron HCl Confirm 10/15/23 09:26 Ondansetron Hcl 4 Mg/2 Ml Vial Administered 10/15/23 09:27 Dose 4 mg .ROUTE .STK-MED ONE Lab/Rad Data: Laboratory Result Diagrams 10/15/23 09:22 10/15/23 09:22 Laboratory Results 10/15/23 10/15/23 10/15/23 Range/Units 11:25 09:22 09:22 WBC (3.98-10.04) x10^3/uL RBC (3.93-5.22) x10^6/uL Hgb (11.2-15.7) g/dL Hct (34.1-44.9) % MCV (79.4-94.8) fL MCH (25.6-32.2) pg MCHC (32.2-35.5) g/dL RDW (11.7-14.4) % Plt Count (182-369) x10^3/uL MPV (9.4-12.3) fL Gran % (34.0-71.1) % Immature Gran % (Auto) (0.001-0.429) % Nucleat RBC Rel Count (0.00-0.2) % Eos # (Auto) (0.04-0.36) x10^3/uL Immature Gran # (Auto) (0.001-0.031) x10^3u/L Absolute Lymphs (auto) (1.18-3.74) x10^3/uL Absolute Monos (auto) (0.24-0.86) x10^3/uL Absolute Nucleated RBC (0.00-0.012) x10^3u/L Lymphocytes % (19.3-51.7) % Monocytes % (4.7-12.5) % Eosinophils % (0.7-5.8) % Basophils % (0.1-1.2) % Absolute Granulocytes (1.56-6.13) x10^3/uL Basophils # (0.01-0.08) x10^3/uL D-Dimer 3.11 H* (0.0-0.50) mg/L Sodium (135-145) mmol/L Potassium (3.5-5.1) mmol/L Chloride (98-107) mmol/L Carbon Dioxide (22-30) mmol/L Anion Gap (5-15) MEQ/L BUN (7-17) mg/dL Creatinine (0.52-1.04) mg/dL Estimated GFR ML/MIN Glucose (74-106) mg/dL Calcium (8.4-10.2) mg/dL Total Bilirubin (0.2-1.3) mg/dL AST (14-36) U/L ALT (0-35) U/L Alkaline Phosphatase (38-126) U/L Creatine Kinase (30-135) U/L Troponin I < 0.012 < 0.012 (0.000-0.033) ng/mL NT-Pro-B Natriuret Pep (<300) pg/mL Serum Total Protein (6.3-8.2) g/dL Albumin (3.5-5.0) g/dL 10/15/23 10/15/23 Range/Units 09:22 09:22 WBC 5.8 (3.98-10.04) x10^3/uL RBC 5.03 (3.93-5.22) x10^6/uL Hgb 12.9 (11.2-15.7) g/dL Hct 40.8 (34.1-44.9) % MCV 81.1 (79.4-94.8) fL MCH 25.6 (25.6-32.2) pg MCHC 31.6 L (32.2-35.5) g/dL RDW 15.1 H (11.7-14.4) % Plt Count 191 (182-369) x10^3/uL MPV 9.1 L (9.4-12.3) fL Gran % 56.1 (34.0-71.1) % Immature Gran % (Auto) 0.2 (0.001-0.429) % Nucleat RBC Rel Count 0.0 (0.00-0.2) % Eos # (Auto) 0.11 (0.04-0.36) x10^3/uL Immature Gran # (Auto) 0.01 (0.001-0.031) x10^3u/L Absolute Lymphs (auto) 1.91 (1.18-3.74) x10^3/uL Absolute Monos (auto) 0.44 (0.24-0.86) x10^3/uL Absolute Nucleated RBC 0.00 (0.00-0.012) x10^3u/L Lymphocytes % 33.2 (19.3-51.7) % Monocytes % 7.7 (4.7-12.5) % Eosinophils % 1.9 (0.7-5.8) % Basophils % 0.9 (0.1-1.2) % Absolute Granulocytes 3.23 (1.56-6.13) x10^3/uL Basophils # 0.05 (0.01-0.08) x10^3/uL D-Dimer (0.0-0.50) mg/L Sodium 140 (135-145) mmol/L Potassium 4.0 (3.5-5.1) mmol/L Chloride 105 (98-107) mmol/L Carbon Dioxide 28 (22-30) mmol/L Anion Gap 11.5 (5-15) MEQ/L BUN 20 H (7-17) mg/dL Creatinine 0.86 (0.52-1.04) mg/dL Estimated GFR 83.8 ML/MIN Glucose 123 H (74-106) mg/dL Calcium 9.2 (8.4-10.2) mg/dL Total Bilirubin 0.60 (0.2-1.3) mg/dL AST 23 (14-36) U/L ALT 22 (0-35) U/L Alkaline Phosphatase 60 (38-126) U/L Creatine Kinase 44 (30-135) U/L Troponin I (0.000-0.033) ng/mL NT-Pro-B Natriuret Pep 96.3 (<300) pg/mL Serum Total Protein 6.9 (6.3-8.2) g/dL Albumin 4.0 (3.5-5.0) g/dL - Progress Progress: improved Progress Note: 10/15/23 09:09 Differential diagnosis includes: PNA, STEMI, NSTEMI, other infection, musculoskeletal pain, pneumothorax - We'll obtain basic labs, fluids, EKG, troponin, chest x-ray - EKG shows no ST changes - my read - O2 saturations consistently greater than 95%. - CXR shows no pneumonia, pneumothorax - my read 10/15/23 13:50 Patient has had 2 negative troponins here in the emergency department. D-dimer was elevated therefore a CTA of the chest was obtained. CTA negative for acute pulmonary embolism. Repeat EKG continued to show no obvious ischemic changes. I did discuss all this with the patient, she did state that she felt she had some left leg pain as well. Patient has many varicose veins on the left leg with some areas of possible phlebitis. Given this and the elevated D-dimer I did discuss risks and benefits of obtaining a DVT ultrasound today. Patient ultimately did state that she would like to have an ultrasound done today. Ultrasound demonstrates superficial thrombophlebitis as expected without a DVT. Patient cannot take aspirin, therefore we did recommend compression, NSAIDs, close follow-up with Dr. Herrera, her PCP. He may recommend a vascular surgeon for further management, possible stripping. We did discuss all this with the patient, she states her understanding, chest pain has resolved here in the emergency department no obvious signs or symptoms of cardiac cause at this point in time. She will need close follow-up with PCP. Counseled pt/family regarding: lab results, diagnosis, need for follow-up, rad results - Departure Departure Disposition: Home Clinical Impression: Atypical chest pain, Thrombophlebitis leg superficial Condition: Stable Critical Care Time: No Referrals: OC HERRERA MD [Primary Care Provider] - Follow up/PCP as directed Instructions: Chest Pain (DC)
[2023-10-15] MEDS ORDERED: TORAdol 30 mg Injection ONE (09:11)
[2023-10-15] MEDS ORDERED: XYLOCAINE VISCOUS 2% 15 ML CUP ONE (09:11)
[2023-10-15] MEDS ORDERED: MAALOX ES 30 ML UNIT DOSE ONE (09:11)
[2023-10-15] MEDS: GI COCKTAIL 45 ML (Maalox/Lidocaine) PO ONE (09:12)
[2023-10-15] MEDS: TORAdol 30 mg Injection IV ONE (09:13)
[2023-10-15] MEDS ORDERED: Zofran 4 MG/2 ML VIAL ONE ×2 (09:21→09:26)
[2023-10-15 09:24] LABS: Absolute Neutrophil Ct (ANC) 3.23 x10^3/uL (1.56-6.13); BASOPHIL % 0.9 % (0.1-1.2); Basophil (Absolute #) 0.05 x10^3/uL (0.01-0.08); Eosinophil % 1.9 % (0.7-5.8); Eosinophil (Absolute #) 0.11 x10^3/uL (0.04-0.36); Hematocrit 40.8 % (34.1-44.9); Hemoglobin 12.9 g/dL (11.2-15.7); IMMATURE GRAN # 0.01 x10^3u/L (0.001-0.031); IMMATURE GRAN % 0.2 % (0.001-0.429); Lymphocyte (Absolute #) 1.91 x10^3/uL (1.18-3.74); Lymphocytes % 33.2 % (19.3-51.7); Mean Cell Volume 81.1 fL (79.4-94.8); Mean Corpuscular Hemoglobin 25.6 pg (25.6-32.2); Mean Corpuscular Hgb Concent. 31.6 g/dL (32.2-35.5); Mean Platelet Volume 9.1 fL (9.4-12.3); Monocyte (Absolute #) 0.44 x10^3/uL (0.24-0.86); Monocytes % 7.7 % (4.7-12.5); Neutrophil % 56.1 % (34.0-71.1); Platelet Count 191 x10^3/uL (182-369); Red Blood Count 5.03 x10^6/uL (3.93-5.22); Red Cell Distribution Width 15.1 % (11.7-14.4); White Blood Count 5.8 x10^3/uL (3.98-10.04)
[2023-10-15] MEDS: Zofran 4 MG/2 ML VIAL IV ONE (09:26)
[2023-10-15 09:53] LABS: ANION GAP 11.5 MEQ/L (5-15); BILIRUBIN,TOTAL 0.6 mg/dL (0.2-1.3); Calcium 9.2 mg/dL (8.4-10.2); Creatinine 1 0.86 mg/dL (0.52-1.04); EST GLOMERULAR FILTRATION RATE 83.8 ML/MIN; NT PRO BNPII 96.3 pg/mL (<300); Total Protein 6.9 g/dL (6.3-8.2)
--- NOTE | 2023-10-15 09:59 | XRAY ---
Indication: Chest pain. Comparison: February 21, 2019 PA/lateral chest again demonstrates normal heart and lungs with incidental left mid lung calcified granuloma. Bony thorax intact with minimal degenerative changes. No new/acute findings.
--- NOTE | 2023-10-15 11:09 | XRAY ---
Indication: Chest pain. Elevated d-dimer. Pulmonary embolus. Multiple contiguous axial images obtained through the chest using 80 cc Isovue 370 contrast and PE protocol. Comparison: February 21, 2019 Good opacification pulmonary arteries to include the lobar and segmental branches. No pulmonary embolus. Heart borderline enlarged. Aorta is normal in course and caliber. Stable tiny left hilar calcified nodes. No pathologic mediastinal/hilar lymphadenopathy. Lungs underinflated and remains clear again with incidental tiny left lower lobe calcified granuloma. Bony thorax intact. Limited upper abdomen demonstrates 2 cm left mid renal cyst not previously included. Impression: Incidental left renal cyst and old granulomatous disease. Remaining CT chest pulmonary embolus exam is again normal.
[2023-10-15 13:39] VITALS: BP 132/72; PULSE 81; RESP 12
--- NOTE | 2023-10-15 13:41 | XRAY ---
Indication: Left leg pain and swelling. DVT. Two-dimensional sonogram and color Doppler imaging major venous vessels left leg performed. Comparison: September 25, 2017 Posterior knee and calf now demonstrates subcutaneous venous varicosities with echodensities favoring thrombophlebitis. No thrombus seen in the deep venous vessels left leg including greater saphenous vein. Patent veins demonstrate normal compressibility and normal venous waveforms. Impression: Sonographic features favoring thrombophlebitis posterior knee and calf. Remaining left leg negative for DVT.
[2023-10-15 13:45] VITALS: O2SAT 100
== END 2023-10-15 14:00 | disposition home or self-care (01) ==
LOC: ED 08:50
DX: R07.89 Other chest pain (principal); I80.02 Phlebitis and thrombophlebitis of superficial vessels of left lower extremity; I10 Essential (primary) hypertension; Z79.899 Other long term (current) drug therapy
CPT/HCPCS: 36000; 36415; 71046; 71260; 80053; 82550; 83880; 84484; 85025; 85379; 93005; 93041; 93971; 96374; 96375; 99284; J1885; J2405; A9270-GY